=== PATIENT | female | born 1965 | race African-American/Black ===

== ENCOUNTER 2021-08-12 19:05 | Inpatient (IN) ==
[2021-08-12] MEDS ORDERED: ONDANSETRON 4 MG/2 ML VIAL IV PRN (22:21)
[2021-08-12] MEDS ORDERED: GLUCAGON 1 MG VIAL IM PRN ×2 (22:21)
[2021-08-12] MEDS ORDERED: ACETAMINOPHEN 325 MG TABLET PO PRN (22:21)
[2021-08-12] MEDS ORDERED: ZALEPLON 5 MG CAPSULE PO PRN (22:21)
[2021-08-12] MEDS ORDERED: DEXTROSE 50% 25 GM/50 ML VIAL IV PRN ×2 (22:21)
[2021-08-12] MEDS ORDERED: ENOXAPARIN 30 MG/0.3 ML SYRINGE SUBCUT SCH (23:00)
[2021-08-12] MEDS: PROMETHAZINE 25 MG/1 ML VIAL IM PRN (23:06)
[2021-08-13] MEDS: ceFAZolin 1,000 MG VIAL INTRAPERIT SCH (02:29)
[2021-08-13 07:21] LABS: Basophils % 0.2 % (0.0-0.8); Eosinophils # 0.1 10*3/uL (0.0-0.87); Eosinophils % 1.1 % (0.00-10.9); Hematocrit 31.7 VOL% (35.7-47.0); Hemoglobin 10.4 GM/DL (12.0-16.0); Immature Granulocytes % 0.5 %; Immature Granulocytes Absolute 0.06 #; Lymphocytes % 24.8 % (21.3-54.2); Mean Corpuscular HGB Conc 32.8 GM/DL (32-36); Mean Corpuscular Volume 94.3 FL (87-102); Mean Platelet Volume 11.4 FL (9.6-12.0); Monocytes % 7.9 % (1.7-12.7); Neutrophils % 65.5 % (38.7-73.9); Platelet Count 245 T/CUMM (130-400); Red Blood Count 3.36 MC/CUMM (3.8-5.5); Red Cell Distribution Width 13.2 % (9.3-17.3); White Blood Count 12.1 T/CUMM (4-12)
[2021-08-13 07:39] LABS: Alanine Aminotransferase 44 U/L (13-56); Albumin 3.1 G/DL (3.4-5.0); Alkaline Phosphatase 115 U/L (45-117); Aspartate Amino Transferase 50 U/L (0-37); Bilirubin,Total < 0.39 MG/DL (0.20-1.00); Blood Urea Nitrogen 70 MG/DL (7-18); Calcium 8.9 MG/DL (8.5-10.1); Carbon Dioxide 31 MMOL/L (21-32); Estimated Glom Filtration Rate 3 ML/MIN; Glucose 150 MG/DL (74-106); Osmolality,Calculated 296.8 MOS/KG (273-304); Potassium 2.8 MMOL/L (3.5-5.1); Sodium 137 MMOL/L (136-145); Total Protein 7.8 G/DL (6.4-8.2)
[2021-08-13] MEDS ORDERED: POTASSIUM CHLORIDE 20 MEQ TABLET PO ONE (08:00)
[2021-08-13] MEDS: MORPHINE 2 MG/1 ML SYRINGE IV PRN ×2 (09:51→17:29)
[2021-08-13] MEDS: PROMETHAZINE 25 MG/1 ML VIAL IM PRN ×2 (09:52→17:26)
[2021-08-13] MEDS: PANTOPRAZOLE 40 MG TABLET PO SCH (09:53)
[2021-08-13] MEDS: INSULIN REGULAR 100 UNIT/ML SUBCUT SCH ×4 (10:09→21:20)
[2021-08-13] MEDS: GABAPENTIN 300 MG CAPSULE PO SCH ×2 (14:37→21:19)
[2021-08-13] MEDS: INSULIN ASPART PROTAMINE/ASPART 70/30 100 UNIT/ML SUBCUT SCH (17:27)
[2021-08-13] MEDS: MONTELUKAST 10 MG TABLET PO SCH (21:19)
[2021-08-13] MEDS: amLODIPine 10 MG TABLET PO SCH (21:19)
[2021-08-13] MEDS: ROSUVASTATIN 20 MG TABLET PO SCH (21:19)
[2021-08-13] MEDS: ASPIRIN EC 81 MG TABLET PO SCH (21:19)
[2021-08-13] MEDS: PARoxetine 20 MG TABLET PO SCH (21:19)
[2021-08-13] MEDS: FERROUS SULFATE 325 MG TABLET PO SCH (21:19)
[2021-08-13] MEDS: HEPARIN 5,000 UNIT/1 ML VIAL SUBCUT SCH (21:20)
[2021-08-13] MEDS: MENTHOL/ZINC OXIDE OINT 71 GM JAR TOP SCH (21:20)
[2021-08-14] MEDS: ceFAZolin 1,000 MG VIAL INTRAPERIT SCH (01:07)
[2021-08-14 06:07] LABS: Basophils % 0.3 % (0.0-0.8); Eosinophils # 0.2 10*3/uL (0.0-0.87); Eosinophils % 2.2 % (0.00-10.9); Hematocrit 30.7 VOL% (35.7-47.0); Hemoglobin 9.9 GM/DL (12.0-16.0); Immature Granulocytes % 0.5 %; Immature Granulocytes Absolute 0.05 #; Lymphocytes # 2.7 10*3/uL (1.4-4.0); Lymphocytes % 28.4 % (21.3-54.2); Mean Corpuscular HGB Conc 32.2 GM/DL (32-36); Mean Corpuscular Volume 98.4 FL (87-102); Mean Platelet Volume 11.3 FL (9.6-12.0); Monocytes % 9.7 % (1.7-12.7); Neutrophils % 58.9 % (38.7-73.9); Platelet Count 253 T/CUMM (130-400); Red Blood Count 3.12 MC/CUMM (3.8-5.5); Red Cell Distribution Width 13.1 % (9.3-17.3); White Blood Count 9.4 T/CUMM (4-12)
[2021-08-14 06:32] LABS: Osmolality,Calculated 291.1 MOS/KG (273-304)
[2021-08-14] MEDS: HEPARIN 5,000 UNIT/1 ML VIAL SUBCUT SCH ×2 (09:42→20:23)
[2021-08-14] MEDS: FERROUS SULFATE 325 MG TABLET PO SCH ×2 (09:43→20:22)
[2021-08-14] MEDS: GABAPENTIN 300 MG CAPSULE PO SCH ×3 (09:43→20:22)
[2021-08-14] MEDS: PANTOPRAZOLE 40 MG TABLET PO SCH (09:43)
[2021-08-14] MEDS: INSULIN ASPART PROTAMINE/ASPART 70/30 100 UNIT/ML SUBCUT SCH ×2 (09:45→16:57)
[2021-08-14] MEDS: INSULIN REGULAR 100 UNIT/ML SUBCUT SCH ×4 (09:46→20:01)
[2021-08-14] MEDS ORDERED: POTASSIUM CHLORIDE 20 MEQ TABLET PO ONE ×2 (09:51→16:03)
[2021-08-14] MEDS: MORPHINE 2 MG/1 ML SYRINGE IV PRN (15:26)
[2021-08-14] MEDS: MENTHOL/ZINC OXIDE OINT 71 GM JAR TOP SCH (20:21)
[2021-08-14] MEDS: ASPIRIN EC 81 MG TABLET PO SCH (20:21)
[2021-08-14] MEDS: ROSUVASTATIN 20 MG TABLET PO SCH (20:22)
[2021-08-14] MEDS: PARoxetine 20 MG TABLET PO SCH (20:22)
[2021-08-14] MEDS: amLODIPine 10 MG TABLET PO SCH (20:22)
[2021-08-14] MEDS: MONTELUKAST 10 MG TABLET PO SCH (20:22)
[2021-08-15] MEDS: ceFAZolin 1,000 MG VIAL INTRAPERIT SCH (01:29)
[2021-08-15 06:36] LABS: Basophils % 0.4 % (0.0-0.8); Eosinophils # 0.4 10*3/uL (0.0-0.87); Eosinophils % 3.9 % (0.00-10.9); Hematocrit 33.3 VOL% (35.7-47.0); Hemoglobin 10.9 GM/DL (12.0-16.0); Immature Granulocytes % 0.6 %; Immature Granulocytes Absolute 0.06 #; Lymphocytes # 3.3 10*3/uL (1.4-4.0); Lymphocytes % 34.1 % (21.3-54.2); Mean Corpuscular HGB Conc 32.7 GM/DL (32-36); Mean Corpuscular Volume 98.5 FL (87-102); Mean Platelet Volume 11.4 FL (9.6-12.0); Monocytes % 10.9 % (1.7-12.7); Neutrophils % 50.1 % (38.7-73.9); Platelet Count 234 T/CUMM (130-400); Red Blood Count 3.38 MC/CUMM (3.8-5.5); Red Cell Distribution Width 13.2 % (9.3-17.3); White Blood Count 9.8 T/CUMM (4-12)
[2021-08-15 07:19] LABS: Calcium 9.1 MG/DL (8.5-10.1); Osmolality,Calculated 284.2 MOS/KG (273-304)
[2021-08-15] MEDS ORDERED: POTASSIUM CHLORIDE 20 MEQ TABLET PO ONE (07:59)
[2021-08-15] MEDS: GABAPENTIN 300 MG CAPSULE PO SCH ×3 (09:23→20:47)
[2021-08-15] MEDS: PANTOPRAZOLE 40 MG TABLET PO SCH (09:24)
[2021-08-15] MEDS: HEPARIN 5,000 UNIT/1 ML VIAL SUBCUT SCH ×2 (09:24→20:50)
[2021-08-15] MEDS: FERROUS SULFATE 325 MG TABLET PO SCH ×2 (09:24→20:48)
[2021-08-15] MEDS: SEVELAMER CARBONATE 800 MG TABLET PO SCH ×3 (09:25→17:00)
[2021-08-15] MEDS: INSULIN REGULAR 100 UNIT/ML SUBCUT SCH ×4 (09:25→20:51)
[2021-08-15] MEDS: INSULIN ASPART PROTAMINE/ASPART 70/30 100 UNIT/ML SUBCUT SCH ×2 (09:25→17:00)
[2021-08-15] MEDS: PROMETHAZINE 25 MG/1 ML VIAL IM PRN (17:39)
[2021-08-15] MEDS: MONTELUKAST 10 MG TABLET PO SCH (20:47)
[2021-08-15] MEDS: ASPIRIN EC 81 MG TABLET PO SCH (20:47)
[2021-08-15] MEDS: ROSUVASTATIN 20 MG TABLET PO SCH (20:47)
[2021-08-15] MEDS: PARoxetine 20 MG TABLET PO SCH (20:47)
[2021-08-15] MEDS: amLODIPine 5 MG TABLET PO SCH (21:05)
[2021-08-15] MEDS: MENTHOL/ZINC OXIDE OINT 71 GM JAR TOP SCH (21:05)
[2021-08-16] MEDS: ceFAZolin 1,000 MG VIAL INTRAPERIT SCH (01:22)
[2021-08-16 05:34] LABS: Basophils % 0.3 % (0.0-0.8); Eosinophils # 0.3 10*3/uL (0.0-0.87); Eosinophils % 3.1 % (0.00-10.9); Hematocrit 30.6 VOL% (35.7-47.0); Hemoglobin 9.8 GM/DL (12.0-16.0); Immature Granulocytes % 0.6 %; Immature Granulocytes Absolute 0.06 #; Lymphocytes # 2.9 10*3/uL (1.4-4.0); Lymphocytes % 29.2 % (21.3-54.2); Mean Corpuscular Volume 98.1 FL (87-102); Mean Platelet Volume 11.4 FL (9.6-12.0); Monocytes % 10.6 % (1.7-12.7); Neutrophils % 56.2 % (38.7-73.9); Platelet Count 243 T/CUMM (130-400); Red Blood Count 3.12 MC/CUMM (3.8-5.5); Red Cell Distribution Width 13.1 % (9.3-17.3); White Blood Count 9.9 T/CUMM (4-12)
[2021-08-16 05:52] LABS: Calcium 9.2 MG/DL (8.5-10.1); Osmolality,Calculated 284.4 MOS/KG (273-304); Potassium 3.3 MMOL/L (3.5-5.1)
[2021-08-16] MEDS ORDERED: POTASSIUM CHLORIDE 10 MEQ TABLET PO ONE (07:48)
[2021-08-16] MEDS: HEPARIN 5,000 UNIT/1 ML VIAL SUBCUT SCH ×2 (09:49→20:57)
[2021-08-16] MEDS: INSULIN ASPART PROTAMINE/ASPART 70/30 100 UNIT/ML SUBCUT SCH ×2 (09:49→16:48)
[2021-08-16] MEDS: FERROUS SULFATE 325 MG TABLET PO SCH ×2 (09:50→20:56)
[2021-08-16] MEDS: PANTOPRAZOLE 40 MG TABLET PO SCH (09:50)
[2021-08-16] MEDS: GABAPENTIN 300 MG CAPSULE PO SCH ×3 (09:50→20:56)
[2021-08-16] MEDS: SEVELAMER CARBONATE 800 MG TABLET PO SCH ×3 (09:51→16:48)
[2021-08-16] MEDS: GENTAMICIN 0.1% OINT 15 GM TUBE TOP SCH ×4 (09:51→20:57)
[2021-08-16] MEDS: INSULIN REGULAR 100 UNIT/ML SUBCUT SCH ×4 (09:57→23:00)
[2021-08-16] MEDS: ROSUVASTATIN 20 MG TABLET PO SCH (20:56)
[2021-08-16] MEDS: MONTELUKAST 10 MG TABLET PO SCH (20:56)
[2021-08-16] MEDS: PARoxetine 20 MG TABLET PO SCH (20:56)
[2021-08-16] MEDS: amLODIPine 5 MG TABLET PO SCH (20:56)
[2021-08-16] MEDS: ASPIRIN EC 81 MG TABLET PO SCH (20:56)
[2021-08-16] MEDS: MENTHOL/ZINC OXIDE OINT 71 GM JAR TOP SCH (20:56)
[2021-08-17] MEDS: ceFAZolin 1,000 MG VIAL INTRAPERIT SCH (01:23)
[2021-08-17 05:57] LABS: Basophils % 0.4 % (0.0-0.8); Eosinophils # 0.4 10*3/uL (0.0-0.87); Eosinophils % 4.1 % (0.00-10.9); Hematocrit 29.2 VOL% (35.7-47.0); Hemoglobin 9.6 GM/DL (12.0-16.0); Immature Granulocytes % 0.9 %; Immature Granulocytes Absolute 0.08 #; Lymphocytes # 2.6 10*3/uL (1.4-4.0); Lymphocytes % 30.2 % (21.3-54.2); Mean Corpuscular HGB Conc 32.9 GM/DL (32-36); Mean Platelet Volume 11.1 FL (9.6-12.0); Monocytes % 9.4 % (1.7-12.7); Platelet Count 229 T/CUMM (130-400); Red Blood Count 2.95 MC/CUMM (3.8-5.5); White Blood Count 8.5 T/CUMM (4-12)
[2021-08-17 06:10] LABS: Calcium 9.1 MG/DL (8.5-10.1); Osmolality,Calculated 285.5 MOS/KG (273-304); Potassium 3.3 MMOL/L (3.5-5.1)
[2021-08-17] MEDS: INSULIN REGULAR 100 UNIT/ML SUBCUT SCH ×4 (08:42→22:33)
[2021-08-17] MEDS: INSULIN ASPART PROTAMINE/ASPART 70/30 100 UNIT/ML SUBCUT SCH (09:15)
[2021-08-17] MEDS: GENTAMICIN 0.1% OINT 15 GM TUBE TOP SCH ×4 (09:15→22:32)
[2021-08-17] MEDS: SEVELAMER CARBONATE 800 MG TABLET PO SCH ×3 (09:16→16:51)
[2021-08-17] MEDS: HEPARIN 5,000 UNIT/1 ML VIAL SUBCUT SCH ×2 (09:16→22:32)
[2021-08-17] MEDS: GABAPENTIN 300 MG CAPSULE PO SCH ×3 (10:44→22:31)
[2021-08-17] MEDS: SODIUM CHLORIDE 0.9% 1,000 ML IV SCH (11:43)
[2021-08-17] MEDS ORDERED: propofoL 200 MG/20 ML VIAL IV ONE (13:35)
[2021-08-17] MEDS ORDERED: LIDOCAINE 2% 5 ML VIAL ONE (13:35)
[2021-08-17] MEDS ORDERED: ETOMIDATE 20 MG/10 ML VIAL IV ONE (14:03)
[2021-08-17] MEDS: FERROUS SULFATE 325 MG TABLET PO SCH ×2 (14:22→22:31)
[2021-08-17] MEDS: PANTOPRAZOLE 40 MG TABLET PO SCH (14:22)
[2021-08-17] MEDS ORDERED: INSULIN ASPART PROTAMINE/ASPART 70/30 100 UNIT/ML SUBCUT SCH (17:00)
[2021-08-17] MEDS ORDERED: amLODIPine 5 MG TABLET PO SCH (21:00)
[2021-08-17] MEDS: ASPIRIN EC 81 MG TABLET PO SCH (22:30)
[2021-08-17] MEDS: MONTELUKAST 10 MG TABLET PO SCH (22:31)
[2021-08-17] MEDS: ROSUVASTATIN 20 MG TABLET PO SCH (22:31)
[2021-08-17] MEDS: PARoxetine 20 MG TABLET PO SCH (22:31)
[2021-08-17] MEDS: MENTHOL/ZINC OXIDE OINT 71 GM JAR TOP SCH (22:31)
[2021-08-18] MEDS: ceFAZolin 1,000 MG VIAL INTRAPERIT SCH (00:27)
[2021-08-18 05:14] LABS: Basophils % 0.4 % (0.0-0.8); Eosinophils # 0.4 10*3/uL (0.0-0.87); Eosinophils % 3.7 % (0.00-10.9); Hematocrit 29.4 VOL% (35.7-47.0); Hemoglobin 9.4 GM/DL (12.0-16.0); Immature Granulocytes % 1.2 %; Immature Granulocytes Absolute 0.11 #; Lymphocytes # 2.5 10*3/uL (1.4-4.0); Lymphocytes % 26.6 % (21.3-54.2); Mean Corpuscular Volume 98.7 FL (87-102); Mean Platelet Volume 11.1 FL (9.6-12.0); Monocytes % 9.4 % (1.7-12.7); Neutrophils % 58.7 % (38.7-73.9); Platelet Count 218 T/CUMM (130-400); Red Blood Count 2.98 MC/CUMM (3.8-5.5); Red Cell Distribution Width 12.9 % (9.3-17.3); White Blood Count 9.6 T/CUMM (4-12)
[2021-08-18 05:44] LABS: Calcium 9.1 MG/DL (8.5-10.1); Osmolality,Calculated 282.7 MOS/KG (273-304); Potassium 3.2 MMOL/L (3.5-5.1)
[2021-08-18] MEDS ORDERED: INSULIN ASPART PROTAMINE/ASPART 70/30 100 UNIT/ML SUBCUT SCH (08:00)
[2021-08-18] MEDS: INSULIN REGULAR 100 UNIT/ML SUBCUT SCH ×2 (09:23→12:34)
[2021-08-18] MEDS: SEVELAMER CARBONATE 800 MG TABLET PO SCH ×2 (09:24→12:34)
[2021-08-18] MEDS: SODIUM CHLORIDE 0.9% 1,000 ML IV SCH (09:24)
[2021-08-18] MEDS: GABAPENTIN 300 MG CAPSULE PO SCH ×2 (10:22→14:34)
[2021-08-18] MEDS: FERROUS SULFATE 325 MG TABLET PO SCH (10:22)
[2021-08-18] MEDS: PANTOPRAZOLE 40 MG TABLET PO SCH (10:22)
[2021-08-18] MEDS: HEPARIN 5,000 UNIT/1 ML VIAL SUBCUT SCH (10:23)
[2021-08-18] MEDS: GENTAMICIN 0.1% OINT 15 GM TUBE TOP SCH ×2 (10:28→14:34)
[2021-08-18 12:06] VITALS: BP 106/57
[2021-08-18] MEDS ORDERED: POTASSIUM CHLORIDE 10 MEQ TABLET PO ONE (13:10)
== END 2021-08-18 16:29 | DRG 371 ==
LOC: N.TELEN → SUATTDRO 22:21
PROVIDERS: ADMIT Internal Medicine; ATTEND Internal Medicine

== ENCOUNTER 2021-09-17 14:37 | Inpatient (IN) ==
[2021-09-17] MEDS ORDERED: SODIUM CHLORIDE 0.9% 1,000 ML IV STA (18:28)
[2021-09-17] MEDS ORDERED: ONDANSETRON 4 MG/2 ML VIAL IV STA (18:28)
[2021-09-17 18:55] LABS: Basophils % 0.3 % (0.0-0.8); Eosinophils # 0.2 10*3/uL (0.0-0.87); Eosinophils % 1.5 % (0.00-10.9); Hematocrit 26.7 VOL% (35.7-47.0); Hemoglobin 8.6 GM/DL (12.0-16.0); Immature Granulocytes % 0.6 %; Immature Granulocytes Absolute 0.08 #; Lymphocytes # 1.9 10*3/uL (1.4-4.0); Lymphocytes % 14.7 % (21.3-54.2); Mean Corpuscular HGB Conc 32.2 GM/DL (32-36); Mean Corpuscular Volume 96.7 FL (87-102); Mean Platelet Volume 9.8 FL (9.6-12.0); Monocytes % 6.3 % (1.7-12.7); Neutrophils % 76.6 % (38.7-73.9); Platelet Count 503 T/CUMM (130-400); Red Blood Count 2.76 MC/CUMM (3.8-5.5); Red Cell Distribution Width 12.4 % (9.3-17.3); White Blood Count 12.6 T/CUMM (4-12)
[2021-09-17 19:18] LABS: Alanine Aminotransferase 16 U/L (13-56); Albumin 2.8 G/DL (3.4-5.0); Alkaline Phosphatase 113 U/L (45-117); Aspartate Amino Transferase 18 U/L (0-37); Bilirubin,Total < 0.39 MG/DL (0.20-1.00); Blood Urea Nitrogen 34 MG/DL (7-18); Calcium 7.9 MG/DL (8.5-10.1); Carbon Dioxide 33 MMOL/L (21-32); Estimated Glom Filtration Rate 7 ML/MIN; Glucose 250 MG/DL (74-106); Sodium 136 MMOL/L (136-145); Total Protein 9.2 G/DL (6.4-8.2)
[2021-09-17 19:21] LABS: Potassium 2.4 MMOL/L (3.5-5.1)
[2021-09-17] MEDS ORDERED: cefTRIAXone 1,000 MG in SODIUM CHLORIDE 0.9% 100 ML IV STA (19:28)
[2021-09-17] MEDS ORDERED: POTASSIUM CHLORIDE 20 MEQ TABLET PO STA (19:30)
[2021-09-17] MEDS ORDERED: PROMETHAZINE INJ 12.5 MG in SODIUM CHLORIDE 0.9% 50 ML IV STA (19:30)
[2021-09-17] MEDS ORDERED: GLUCAGON 1 MG VIAL IM PRN (20:35)
[2021-09-17] MEDS ORDERED: hydrALAZINE 20 MG/1 ML VIAL IV PRN (20:35)
[2021-09-17] MEDS ORDERED: PROMETHAZINE 25 MG/1 ML VIAL IV PRN (20:35)
[2021-09-17] MEDS ORDERED: ACETAMINOPHEN 325 MG TABLET PO PRN (20:35)
[2021-09-17] MEDS ORDERED: DEXTROSE 50% 25 GM/50 ML SYRINGE IV PRN (20:51)
[2021-09-17] MEDS ORDERED: LACTATED RINGERS 1,000 ML IV SCH (21:00)
[2021-09-17] MEDS: HEPARIN 5,000 UNIT/1 ML VIAL SUBCUT SCH (23:07)
[2021-09-17] MEDS: metroNIDAZOLE INJ 500 MG/100 ML PREMIX IV SCH (23:07)
[2021-09-18] MEDS: INSULIN LISPRO 100 UNIT/ML SUBCUT SCH ×4 (01:04→17:04)
[2021-09-18] MEDS ORDERED: MAGNESIUM SULF RIDER 2 GM/50 ML PREMIX IV ONE (02:27)
[2021-09-18 06:36] LABS: Albumin 2.1 G/DL (3.4-5.0); Bilirubin,Total 0.6 MG/DL (0.20-1.00); Calcium 7.3 MG/DL (8.5-10.1); Osmolality,Calculated 290.4 MOS/KG (273-304); Potassium 2.6 MMOL/L (3.5-5.1); Total Protein 6.8 G/DL (6.4-8.2)
[2021-09-18 07:24] LABS: Basophils % 0.2 % (0.0-0.8); Eosinophils # 0.2 10*3/uL (0.0-0.87); Eosinophils % 1.8 % (0.00-10.9); Hematocrit 20.1 VOL% (35.7-47.0); Immature Granulocytes % 0.8 %; Immature Granulocytes Absolute 0.09 #; Lymphocytes # 1.5 10*3/uL (1.4-4.0); Lymphocytes % 14.4 % (21.3-54.2); Mean Corpuscular HGB Conc 32.8 GM/DL (32-36); Mean Corpuscular Volume 96.6 FL (87-102); Mean Platelet Volume 9.5 FL (9.6-12.0); Monocytes % 8.7 % (1.7-12.7); Neutrophils % 74.1 % (38.7-73.9); Red Cell Distribution Width 12.5 % (9.3-17.3); White Blood Count 10.7 T/CUMM (4-12)
[2021-09-18 07:26] LABS: Hemoglobin 6.6 GM/DL (12.0-16.0); Platelet Count 354 T/CUMM (130-400); Red Blood Count 2.08 MC/CUMM (3.8-5.5)
[2021-09-18] MEDS ORDERED: POTASSIUM CHLORIDE 20 MEQ TABLET PO ONE (07:27)
[2021-09-18] MEDS ORDERED: SODIUM CHLORIDE 0.9% 1,000 ML IV PRN (08:25)
[2021-09-18] MEDS: HEPARIN 5,000 UNIT/1 ML VIAL SUBCUT SCH ×2 (08:35→21:19)
[2021-09-18] MEDS: metroNIDAZOLE INJ 500 MG/100 ML PREMIX IV SCH ×2 (08:35→17:03)
[2021-09-18 15:28] LABS: Hematocrit 26.2 VOL% (35.7-47.0)
[2021-09-18 15:30] LABS: Hemoglobin 8.8 GM/DL (12.0-16.0)
[2021-09-18 15:43] LABS: Neutrophils,Peritoneal Fluid 20 %; RBC,Peritoneal Fluid < 1 T/CUMM
[2021-09-18] MEDS: ONDANSETRON 4 MG/2 ML VIAL IV PRN (17:52)
[2021-09-18] MEDS ORDERED: cefTRIAXone 1,000 MG in SODIUM CHLORIDE 0.9% 100 ML IV SCH (20:00)
[2021-09-19] MEDS ORDERED: VANCOMYCIN 1,000 MG VIAL INTRAPERIT ONE
[2021-09-19] MEDS: INSULIN LISPRO 100 UNIT/ML SUBCUT SCH ×5 (00:39→22:34)
[2021-09-19 07:41] LABS: Basophils % 0.3 % (0.0-0.8); Eosinophils # 0.3 10*3/uL (0.0-0.87); Eosinophils % 3.3 % (0.00-10.9); Hematocrit 29.4 VOL% (35.7-47.0); Hemoglobin 9.7 GM/DL (12.0-16.0); Immature Granulocytes % 1.5 %; Immature Granulocytes Absolute 0.13 #; Lymphocytes % 22.7 % (21.3-54.2); Mean Corpuscular Volume 96.4 FL (87-102); Mean Platelet Volume 9.9 FL (9.6-12.0); Monocytes % 6.7 % (1.7-12.7); Neutrophils % 65.5 % (38.7-73.9); Platelet Count 320 T/CUMM (130-400); Red Blood Count 3.05 MC/CUMM (3.8-5.5); Red Cell Distribution Width 13.6 % (9.3-17.3); White Blood Count 8.7 T/CUMM (4-12)
[2021-09-19 07:56] LABS: Calcium 7.5 MG/DL (8.5-10.1); Osmolality,Calculated 289.4 MOS/KG (273-304); Potassium 2.6 MMOL/L (3.5-5.1)
[2021-09-19] MEDS: HEPARIN 5,000 UNIT/1 ML VIAL SUBCUT SCH ×2 (08:14→22:34)
[2021-09-19] MEDS ORDERED: POTASSIUM CHLORIDE 20 MEQ TABLET PO ONE (08:17)
[2021-09-19] MEDS: VANCOMYCIN 50 MG/ML 60 ML/BOTTLE PO SCH ×2 (17:20→23:11)
[2021-09-19] MEDS: ONDANSETRON 4 MG/2 ML VIAL IV PRN (17:20)
[2021-09-20] MEDS ORDERED: GENTAMICIN 80 MG/2 ML VIAL INTRAPERIT SCH
[2021-09-20] MEDS: VANCOMYCIN 50 MG/ML 60 ML/BOTTLE PO SCH ×2 (06:28→11:57)
[2021-09-20 07:09] LABS: Basophils % 0.3 % (0.0-0.8); Eosinophils # 0.3 10*3/uL (0.0-0.87); Eosinophils % 4.1 % (0.00-10.9); Hematocrit 25.7 VOL% (35.7-47.0); Hemoglobin 8.4 GM/DL (12.0-16.0); Immature Granulocytes % 0.9 %; Immature Granulocytes Absolute 0.06 #; Lymphocytes # 1.8 10*3/uL (1.4-4.0); Lymphocytes % 26.2 % (21.3-54.2); Mean Corpuscular HGB Conc 32.7 GM/DL (32-36); Mean Corpuscular Volume 97.3 FL (87-102); Mean Platelet Volume 9.5 FL (9.6-12.0); Monocytes % 9.6 % (1.7-12.7); Neutrophils % 58.9 % (38.7-73.9); Platelet Count 305 T/CUMM (130-400); Red Blood Count 2.64 MC/CUMM (3.8-5.5); Red Cell Distribution Width 13.6 % (9.3-17.3); White Blood Count 6.9 T/CUMM (4-12)
[2021-09-20 07:22] LABS: Calcium 7.7 MG/DL (8.5-10.1); Potassium 2.6 MMOL/L (3.5-5.1)
[2021-09-20] MEDS ORDERED: POTASSIUM CHLORIDE 20 MEQ TABLET PO ONE ×2 (09:30→13:00)
[2021-09-20] MEDS ORDERED: POTASSIUM CHLORIDE 20 MEQ TABLET PO SCH (09:30)
[2021-09-20] MEDS: HEPARIN 5,000 UNIT/1 ML VIAL SUBCUT SCH (09:43)
[2021-09-20] MEDS: INSULIN LISPRO 100 UNIT/ML SUBCUT SCH ×2 (09:43→11:56)
[2021-09-20 12:25] VITALS: BP 150/64
== END 2021-09-20 16:15 | disposition home health service (06) | DRG 371 ==
LOC: N.ED 14:37 → N.3E 20:35 → SUATTDRO 20:35 → N.3E 22:50
PROVIDERS: ADMIT Internal Medicine; ATTEND Internal Medicine

== ENCOUNTER 2021-09-22 15:30 | Observation (INO) ==
[2021-09-22] MEDS ORDERED: SODIUM CHLORIDE 0.9% 1,000 ML IV STA (16:51)
[2021-09-22] MEDS ORDERED: ONDANSETRON 4 MG/2 ML VIAL IV STA (16:52)
[2021-09-22 17:12] LABS: Basophils % 0.2 % (0.0-0.8); Eosinophils # 0.3 10*3/uL (0.0-0.87); Eosinophils % 2.1 % (0.00-10.9); Hematocrit 30.9 VOL% (35.7-47.0); Hemoglobin 10.2 GM/DL (12.0-16.0); Immature Granulocytes % 0.8 %; Immature Granulocytes Absolute 0.11 #; Lymphocytes # 1.9 10*3/uL (1.4-4.0); Lymphocytes % 14.5 % (21.3-54.2); Mean Corpuscular Volume 95.4 FL (87-102); Mean Platelet Volume 9.7 FL (9.6-12.0); Monocytes % 6.8 % (1.7-12.7); Neutrophils % 75.6 % (38.7-73.9); Platelet Count 366 T/CUMM (130-400); Red Blood Count 3.24 MC/CUMM (3.8-5.5); Red Cell Distribution Width 13.8 % (9.3-17.3); White Blood Count 13.1 T/CUMM (4-12)
[2021-09-22 17:37] LABS: Albumin 2.6 G/DL (3.4-5.0); Bilirubin,Total 0.4 MG/DL (0.20-1.00); Calcium 8.1 MG/DL (8.5-10.1); Osmolality,Calculated 287.8 MOS/KG (273-304); Potassium 2.8 MMOL/L (3.5-5.1)
[2021-09-22 18:27] LABS: Bilirubin,Urine Negative (Negative); Blood, Urine Small mg/dL (Negative); Glucose,Urine (UA) >=500 mg/dL (Negative); Ketones,Urine Negative (Negative); Mucus,Urine Occasional /LPF (Occasional); Nitrite,Urine Negative (Negative); Protein,Urine 100 MG/DL; RBC,Urine 2 /HPF (0-4); Squamous Epithelial Cell,Urine Occasional /HPF (0-10); Urine Appearance CLEAR (Clear); Urine Color Yellow (Yellow); Urine Specific Gravity 1.014 (1.001-1.035); Urine Urobilinogen < 2.0 EU/DL (<2.0)
[2021-09-22] MEDS ORDERED: POTASSIUM CHLORIDE 20 MEQ TABLET PO STA (21:14)
[2021-09-22] MEDS ORDERED: MAGNESIUM SULF RIDER 4 GM/100 ML PREMIX IV STA (21:25)
[2021-09-22] MEDS ORDERED: PANTOPRAZOLE 40 MG VIAL IV SCH (21:56)
[2021-09-22] MEDS ORDERED: GLUCAGON 1 MG VIAL IM PRN (21:56)
[2021-09-22] MEDS ORDERED: DEXTROSE 50% 25 GM/50 ML SYRINGE IV PRN (21:56)
[2021-09-22] MEDS ORDERED: ONDANSETRON 4 MG/2 ML VIAL IV PRN (21:56)
[2021-09-22] MEDS ORDERED: hydrALAZINE 20 MG/1 ML VIAL IV PRN (21:56)
[2021-09-22] MEDS ORDERED: PROMETHAZINE 25 MG/1 ML VIAL IM PRN (21:56)
[2021-09-22] MEDS ORDERED: SODIUM CHLORIDE 0.9% 1,000 ML IV SCH (22:00)
[2021-09-22] MEDS ORDERED: MORPHINE 2 MG/1 ML SYRINGE IV PRN (22:10)
[2021-09-22] MEDS ORDERED: ALUMINUM/MAGNES/SIMETH MAX STR 30 ML UDCUP PO PRN (22:15)
[2021-09-22] MEDS: PANTOPRAZOLE 40 MG VIAL IV SCH (22:19)
[2021-09-23] MEDS ORDERED: PIPERACILLIN/TAZOBACTAM 3,375 MG in SODIUM CHLORIDE 0.9% 100 ML IV SCH
[2021-09-23] MEDS: INSULIN REGULAR 100 UNIT/ML SUBCUT SCH ×5 (00:14→23:35)
[2021-09-23] MEDS: VANCOMYCIN 50 MG/ML 60 ML/BOTTLE PO SCH ×5 (00:51→23:40)
[2021-09-23 06:13] LABS: Basophils % 0.3 % (0.0-0.8); Eosinophils # 0.3 10*3/uL (0.0-0.87); Eosinophils % 2.4 % (0.00-10.9); Hematocrit 24.3 VOL% (35.7-47.0); Immature Granulocytes % 0.6 %; Immature Granulocytes Absolute 0.07 #; Lymphocytes # 1.9 10*3/uL (1.4-4.0); Lymphocytes % 16.3 % (21.3-54.2); Mean Corpuscular HGB Conc 33.3 GM/DL (32-36); Mean Corpuscular Volume 97.2 FL (87-102); Mean Platelet Volume 9.9 FL (9.6-12.0); Monocytes % 8.4 % (1.7-12.7); Red Cell Distribution Width 13.9 % (9.3-17.3); White Blood Count 11.5 T/CUMM (4-12)
[2021-09-23 06:15] LABS: Hemoglobin 8.1 GM/DL (12.0-16.0); Platelet Count 270 T/CUMM (130-400)
[2021-09-23 06:41] LABS: Bilirubin,Total 0.9 MG/DL (0.20-1.00); Potassium 2.7 MMOL/L (3.5-5.1); Thyroid Stimulating Hormone 0.89 uIU/ml (0.358-3.74); Total Protein 6.2 G/DL (6.4-8.2)
[2021-09-23] MEDS: SEVELAMER CARBONATE 800 MG TABLET PO SCH ×3 (08:47→17:02)
[2021-09-23] MEDS: POTASSIUM CHLORIDE 20 MEQ TABLET PO SCH ×2 (08:48→23:02)
[2021-09-23] MEDS: INSULIN ASPART PROTAMINE/ASPART 70/30 100 UNIT/ML SUBCUT SCH (08:48)
[2021-09-23] MEDS: GABAPENTIN 300 MG CAPSULE PO SCH ×3 (08:48→23:02)
[2021-09-23] MEDS: FERROUS SULFATE 325 MG TABLET PO SCH ×2 (08:48→17:00)
[2021-09-23] MEDS: PANTOPRAZOLE 40 MG VIAL IV SCH ×2 (08:49→23:03)
[2021-09-23] MEDS ORDERED: POTASSIUM CHLORIDE 20 MEQ TABLET PO ONE (11:30)
[2021-09-23] MEDS ORDERED: MAGNESIUM SULF RIDER 2 GM/50 ML PREMIX IV ONE (11:30)
[2021-09-23] MEDS ORDERED: MAGNESIUM SULF RIDER 2 GM/50 ML PREMIX IV PRN (12:06)
[2021-09-23] MEDS ORDERED: MAGNESIUM SULF RIDER 4 GM/100 ML PREMIX IV PRN (12:06)
[2021-09-23] MEDS: GENTAMICIN 0.1% OINT 15 GM TUBE TOP SCH ×3 (12:22→23:07)
[2021-09-23] MEDS ORDERED: INSULIN ASPART PROTAMINE/ASPART 70/30 100 UNIT/ML SUBCUT SCH (17:00)
[2021-09-23 17:27] LABS: Hematocrit 26.2 VOL% (35.7-47.0); Hemoglobin 8.7 GM/DL (12.0-16.0)
[2021-09-23] MEDS ORDERED: MONTELUKAST 10 MG TABLET PO SCH (21:00)
[2021-09-23] MEDS ORDERED: amLODIPine 10 MG TABLET PO SCH (21:00)
[2021-09-23] MEDS ORDERED: ROSUVASTATIN 20 MG TABLET PO SCH (21:00)
[2021-09-23] MEDS ORDERED: MENTHOL/ZINC OXIDE OINT 71 GM JAR TOP SCH (21:00)
[2021-09-23] MEDS ORDERED: PARoxetine 20 MG TABLET PO SCH (21:00)
[2021-09-23 22:38] LABS: Hematocrit 23.2 VOL% (35.7-47.0); Hemoglobin 7.7 GM/DL (12.0-16.0)
[2021-09-24 05:42] LABS: Basophils % 0.2 % (0.0-0.8); Eosinophils # 0.3 10*3/uL (0.0-0.87); Eosinophils % 3.1 % (0.00-10.9); Hematocrit 23.4 VOL% (35.7-47.0); Hemoglobin 7.8 GM/DL (12.0-16.0); Immature Granulocytes % 0.6 %; Immature Granulocytes Absolute 0.06 #; Lymphocytes # 2.3 10*3/uL (1.4-4.0); Lymphocytes % 21.1 % (21.3-54.2); Mean Corpuscular HGB Conc 33.3 GM/DL (32-36); Mean Corpuscular Volume 98.3 FL (87-102); Mean Platelet Volume 9.9 FL (9.6-12.0); Monocytes % 8.7 % (1.7-12.7); Neutrophils % 66.3 % (38.7-73.9); Platelet Count 267 T/CUMM (130-400); Red Blood Count 2.38 MC/CUMM (3.8-5.5); Red Cell Distribution Width 14.1 % (9.3-17.3); White Blood Count 10.8 T/CUMM (4-12)
[2021-09-24 06:15] LABS: Hypochromasia 2+; Platelet Estimate Normal
[2021-09-24 06:26] LABS: Calcium 7.7 MG/DL (8.5-10.1); Osmolality,Calculated 285.1 MOS/KG (273-304); Potassium 3.3 MMOL/L (3.5-5.1)
[2021-09-24] MEDS: VANCOMYCIN 50 MG/ML 60 ML/BOTTLE PO SCH ×2 (06:34→12:02)
[2021-09-24] MEDS: INSULIN REGULAR 100 UNIT/ML SUBCUT SCH ×2 (06:34→12:03)
[2021-09-24] MEDS: INSULIN ASPART PROTAMINE/ASPART 70/30 100 UNIT/ML SUBCUT SCH (08:58)
[2021-09-24] MEDS: PANTOPRAZOLE 40 MG VIAL IV SCH (08:59)
[2021-09-24] MEDS: POTASSIUM CHLORIDE 20 MEQ TABLET PO SCH (08:59)
[2021-09-24] MEDS: SEVELAMER CARBONATE 800 MG TABLET PO SCH ×2 (08:59→12:01)
[2021-09-24] MEDS: FERROUS SULFATE 325 MG TABLET PO SCH (08:59)
[2021-09-24] MEDS: GENTAMICIN 0.1% OINT 15 GM TUBE TOP SCH (08:59)
[2021-09-24] MEDS: GABAPENTIN 300 MG CAPSULE PO SCH (08:59)
[2021-09-24] MEDS ORDERED: POTASSIUM CHLORIDE 20 MEQ TABLET PO ONE (10:33)
[2021-09-24 11:24] LABS: Hematocrit 26.6 VOL% (35.7-47.0); Hemoglobin 8.7 GM/DL (12.0-16.0)
[2021-09-24 11:38] VITALS: BP 125/77
== END 2021-09-24 12:40 | disposition home health service (06) ==
LOC: EDUNIT# → EDBD → N.ED 15:30 → N.EDINP 15:30 → N.3E 09-23 02:00
PROVIDERS: ADMIT Internal Medicine; ATTEND Internal Medicine

== ENCOUNTER 2021-10-04 12:49 | Observation (INO) ==
[2021-10-04 14:37] LABS: Basophils % 0.2 % (0.0-0.8); Eosinophils # 0.2 10*3/uL (0.0-0.87); Eosinophils % 1.6 % (0.00-10.9); Hematocrit 22.3 VOL% (35.7-47.0); Hemoglobin 7.7 GM/DL (12.0-16.0); Immature Granulocytes % 0.5 %; Immature Granulocytes Absolute 0.05 #; Lymphocytes # 1.7 10*3/uL (1.4-4.0); Lymphocytes % 17.2 % (21.3-54.2); Mean Corpuscular HGB Conc 34.5 GM/DL (32-36); Mean Corpuscular Volume 94.5 FL (87-102); Mean Platelet Volume 10.7 FL (9.6-12.0); Monocytes % 6.6 % (1.7-12.7); Neutrophils % 73.9 % (38.7-73.9); Platelet Count 239 T/CUMM (130-400); Red Blood Count 2.36 MC/CUMM (3.8-5.5); Red Cell Distribution Width 13.3 % (9.3-17.3); White Blood Count 9.6 T/CUMM (4-12)
[2021-10-04 14:53] LABS: Alanine Aminotransferase 17 U/L (13-56); Albumin 2.3 G/DL (3.4-5.0); Alkaline Phosphatase 105 U/L (45-117); Aspartate Amino Transferase 16 U/L (0-37); Bilirubin,Total < 0.39 MG/DL (0.20-1.00); Blood Urea Nitrogen 17 MG/DL (7-18); Calcium 7.2 MG/DL (8.5-10.1); Carbon Dioxide 34 MMOL/L (21-32); Estimated Glom Filtration Rate 8 ML/MIN; Glucose 272 MG/DL (74-106); Sodium 136 MMOL/L (136-145); Total Protein 7.5 G/DL (6.4-8.2)
[2021-10-04 14:57] LABS: Potassium 2.5 MMOL/L (3.5-5.1)
[2021-10-04] MEDS ORDERED: GLUCAGON 1 MG VIAL IM PRN (17:03)
[2021-10-04] MEDS ORDERED: ACETAMINOPHEN 325 MG TABLET PO PRN (17:03)
[2021-10-04] MEDS ORDERED: ALBUTEROL 2.5 MG/3 ML NEB RESP TX PRN (17:03)
[2021-10-04] MEDS ORDERED: DEXTROSE 50% 25 GM/50 ML SYRINGE IV PRN (17:03)
[2021-10-04] MEDS ORDERED: SODIUM CHLORIDE 0.9% 1,000 ML IV SCH (17:30)
[2021-10-04] MEDS ORDERED: POTASSIUM CHLORIDE 20 MEQ TABLET PO SCH (17:30)
[2021-10-04 17:39] LABS: % Iron Saturation 28.3 % (18-50)
[2021-10-04 18:01] LABS: Folate 5.82 NG/ML (5.38-24.0)
[2021-10-04] MEDS ORDERED: MAGNESIUM SULF RIDER 2 GM/50 ML PREMIX IV STA (18:48)
[2021-10-04] MEDS: INSULIN LISPRO 100 UNIT/ML SUBCUT SCH (21:28)
[2021-10-04] MEDS: ROSUVASTATIN 20 MG TABLET PO SCH (21:30)
[2021-10-04] MEDS: FERROUS SULFATE 325 MG TABLET PO SCH (21:30)
[2021-10-04] MEDS: PARoxetine 20 MG TABLET PO SCH (21:31)
[2021-10-04] MEDS: MONTELUKAST 10 MG TABLET PO SCH (21:36)
[2021-10-04] MEDS ORDERED: CHOLESTYRAMINE 4 GM PACK PO SCH (22:00)
[2021-10-04] MEDS: ONDANSETRON 4 MG/2 ML VIAL IV PRN (23:56)
[2021-10-05 05:59] LABS: Basophils % 0.3 % (0.0-0.8); Eosinophils # 0.2 10*3/uL (0.0-0.87); Hematocrit 21.8 VOL% (35.7-47.0); Hemoglobin 7.3 GM/DL (12.0-16.0); Immature Granulocytes % 0.3 %; Immature Granulocytes Absolute 0.02 #; Lymphocytes # 1.8 10*3/uL (1.4-4.0); Lymphocytes % 22.2 % (21.3-54.2); Mean Corpuscular HGB Conc 33.5 GM/DL (32-36); Mean Corpuscular Volume 95.6 FL (87-102); Mean Platelet Volume 11.4 FL (9.6-12.0); Monocytes % 7.5 % (1.7-12.7); Neutrophils % 67.7 % (38.7-73.9); Red Blood Count 2.28 MC/CUMM (3.8-5.5); Red Cell Distribution Width 13.4 % (9.3-17.3)
[2021-10-05 06:03] LABS: Platelet Count 156 T/CUMM (130-400)
[2021-10-05 06:10] LABS: Calcium 6.9 MG/DL (8.5-10.1); Osmolality,Calculated 280.7 MOS/KG (273-304); Potassium 3.2 MMOL/L (3.5-5.1)
[2021-10-05] MEDS ORDERED: SODIUM CHLORIDE 0.9% 1,000 ML IV PRN (08:14)
[2021-10-05] MEDS: FERROUS SULFATE 325 MG TABLET PO SCH ×3 (08:18→21:14)
[2021-10-05] MEDS: PANTOPRAZOLE 40 MG VIAL IV SCH (08:18)
[2021-10-05] MEDS: ASPIRIN EC 81 MG TABLET PO SCH (08:18)
[2021-10-05] MEDS: INSULIN LISPRO 100 UNIT/ML SUBCUT SCH ×4 (08:18→20:56)
[2021-10-05] MEDS: ONDANSETRON 4 MG/2 ML VIAL IV PRN (09:05)
[2021-10-05] MEDS ORDERED: POTASSIUM CHLORIDE 20 MEQ TABLET PO ONE (09:55)
[2021-10-05] MEDS: POLYETHYLENE GLYCOL POWDER 17 GM PACK PO SCH (11:03)
[2021-10-05] MEDS: MONTELUKAST 10 MG TABLET PO SCH (20:55)
[2021-10-05] MEDS: ROSUVASTATIN 20 MG TABLET PO SCH (20:55)
[2021-10-05] MEDS: PARoxetine 20 MG TABLET PO SCH (20:56)
[2021-10-06 05:59] LABS: Basophils % 0.3 % (0.0-0.8); Eosinophils # 0.2 10*3/uL (0.0-0.87); Eosinophils % 2.5 % (0.00-10.9); Hematocrit 26.2 VOL% (35.7-47.0); Hemoglobin 8.8 GM/DL (12.0-16.0); Immature Granulocytes % 0.4 %; Immature Granulocytes Absolute 0.03 #; Lymphocytes # 1.5 10*3/uL (1.4-4.0); Lymphocytes % 21.4 % (21.3-54.2); Mean Corpuscular HGB Conc 33.6 GM/DL (32-36); Mean Corpuscular Volume 92.6 FL (87-102); Monocytes % 7.2 % (1.7-12.7); Neutrophils % 68.2 % (38.7-73.9); Platelet Count 186 T/CUMM (130-400); Red Blood Count 2.83 MC/CUMM (3.8-5.5); Red Cell Distribution Width 13.8 % (9.3-17.3); White Blood Count 7.2 T/CUMM (4-12)
[2021-10-06 06:23] LABS: Calcium 7.3 MG/DL (8.5-10.1); Osmolality,Calculated 283.3 MOS/KG (273-304); Potassium 2.8 MMOL/L (3.5-5.1)
[2021-10-06 08:30] VITALS: BP 157/73
[2021-10-06] MEDS ORDERED: POTASSIUM CHLORIDE 20 MEQ TABLET PO ONE (08:30)
[2021-10-06] MEDS: INSULIN LISPRO 100 UNIT/ML SUBCUT SCH (08:35)
[2021-10-06] MEDS: ASPIRIN EC 81 MG TABLET PO SCH (08:36)
[2021-10-06] MEDS: POLYETHYLENE GLYCOL POWDER 17 GM PACK PO SCH (08:36)
[2021-10-06] MEDS: PANTOPRAZOLE 40 MG VIAL IV SCH (08:36)
[2021-10-06] MEDS: ONDANSETRON 4 MG/2 ML VIAL IV PRN (08:41)
[2021-10-06] MEDS: FERROUS SULFATE 325 MG TABLET PO SCH (10:46)
== END 2021-10-06 12:19 | disposition home or self-care (01) ==
LOC: EDBD → EDUNIT# → N.EDINP 12:49 → N.ED 12:49 → SUATTDRO 16:48 → N.3E 10-05 00:30
PROVIDERS: ADMIT Internal Medicine; ATTEND Internal Medicine

== ENCOUNTER 2021-10-17 16:27 | Inpatient (IN) ==
[2021-10-17] MEDS ORDERED: ONDANSETRON 4 MG/2 ML VIAL IV STA (17:47)
[2021-10-17] MEDS ORDERED: SODIUM CHLORIDE 0.9% 1,000 ML IV STA ×2 (17:47→19:47)
[2021-10-17 19:05] LABS: Basophils % 0.1 % (0.0-0.8); Eosinophils % 0.1 % (0.00-10.9); Hematocrit 35.3 VOL% (35.7-47.0); Hemoglobin 11.9 GM/DL (12.0-16.0); Immature Granulocytes % 0.6 %; Immature Granulocytes Absolute 0.08 #; Lymphocytes # 1.7 10*3/uL (1.4-4.0); Lymphocytes % 12.2 % (21.3-54.2); Mean Corpuscular HGB Conc 33.7 GM/DL (32-36); Mean Corpuscular Volume 90.5 FL (87-102); Mean Platelet Volume 11.2 FL (9.6-12.0); Monocytes % 5.8 % (1.7-12.7); Neutrophils % 81.2 % (38.7-73.9); Platelet Count 352 T/CUMM (130-400); Red Cell Distribution Width 13.6 % (9.3-17.3); White Blood Count 13.5 T/CUMM (4-12)
[2021-10-17 19:23] LABS: Alanine Aminotransferase 27 U/L (13-56); Albumin 2.7 G/DL (3.4-5.0); Alkaline Phosphatase 154 U/L (45-117); Aspartate Amino Transferase 18 U/L (0-37); Blood Urea Nitrogen 23 MG/DL (7-18); Calcium 7.8 MG/DL (8.5-10.1); Carbon Dioxide 34 MMOL/L (21-32); Estimated Glom Filtration Rate 6 ML/MIN; Glucose 365 MG/DL (74-106); Sodium 136 MMOL/L (136-145); Total Protein 8.8 G/DL (6.4-8.2)
[2021-10-17 19:26] LABS: Potassium 2.5 MMOL/L (3.5-5.1)
[2021-10-17] MEDS ORDERED: INSULIN REGULAR 100 UNIT/ML SUBCUT STA (19:49)
[2021-10-17] MEDS: POTASSIUM CHLORIDE RIDER 10 MEQ/100 ML PREMIX IV SCH ×3 (20:00→23:09)
[2021-10-17] MEDS ORDERED: PROMETHAZINE 25 MG/1 ML VIAL IM STA (20:45)
[2021-10-17] MEDS ORDERED: PROMETHAZINE 25 MG/1 ML VIAL ONE (20:46)
[2021-10-17] MEDS ORDERED: GLUCAGON 1 MG VIAL IM PRN (21:44)
[2021-10-17] MEDS ORDERED: hydrALAZINE 20 MG/1 ML VIAL IV PRN (21:44)
[2021-10-17] MEDS ORDERED: PROMETHAZINE 25 MG/1 ML VIAL IV PRN (21:44)
[2021-10-17] MEDS ORDERED: DEXTROSE 50% 25 GM/50 ML SYRINGE IV PRN (21:44)
[2021-10-17] MEDS ORDERED: PROMETHAZINE INJ 25 MG in SODIUM CHLORIDE 0.9% 50 ML IV PRN (21:55)
[2021-10-17] MEDS: ONDANSETRON 4 MG/2 ML VIAL IV PRN (22:03)
[2021-10-17] MEDS ORDERED: PROCHLORPERAZINE 10 MG/2 ML VIAL ONE (22:24)
[2021-10-17] MEDS ORDERED: PROCHLORPERAZINE 10 MG/2 ML VIAL IV PRN (22:25)
[2021-10-17] MEDS: PANTOPRAZOLE 40 MG VIAL IV SCH (22:32)
[2021-10-17] MEDS: SODIUM CHLORIDE 0.9% 1,000 ML IV SCH (22:58)
[2021-10-18] MEDS: POTASSIUM CHLORIDE RIDER 10 MEQ/100 ML PREMIX IV SCH ×5 (00:12→09:48)
[2021-10-18] MEDS ORDERED: MAGNESIUM SULF RIDER 1 GM/100 ML PREMIX IV ONE (01:00)
[2021-10-18] MEDS: ONDANSETRON 4 MG/2 ML VIAL IV PRN (02:07)
[2021-10-18 04:06] LABS: Basophils % 0.2 % (0.0-0.8); Eosinophils % 0.1 % (0.00-10.9); Hematocrit 24.4 VOL% (35.7-47.0); Immature Granulocytes % 0.6 %; Immature Granulocytes Absolute 0.06 #; Lymphocytes # 1.5 10*3/uL (1.4-4.0); Lymphocytes % 14.4 % (21.3-54.2); Mean Corpuscular HGB Conc 33.6 GM/DL (32-36); Mean Corpuscular Volume 93.1 FL (87-102); Mean Platelet Volume 10.7 FL (9.6-12.0); Monocytes % 8.6 % (1.7-12.7); Neutrophils % 76.1 % (38.7-73.9); Red Cell Distribution Width 13.8 % (9.3-17.3); White Blood Count 10.6 T/CUMM (4-12)
[2021-10-18 04:12] LABS: Red Blood Count 2.62 MC/CUMM (3.8-5.5)
[2021-10-18 04:13] LABS: Hemoglobin 8.2 GM/DL (12.0-16.0); Platelet Count 262 T/CUMM (130-400)
[2021-10-18 04:20] LABS: Albumin 1.6 G/DL (3.4-5.0); Bilirubin,Total 0.8 MG/DL (0.20-1.00); Calcium 6.1 MG/DL (8.5-10.1); Osmolality,Calculated 289.1 MOS/KG (273-304); Total Protein 5.9 G/DL (6.4-8.2)
[2021-10-18 04:28] LABS: Potassium 2.3 MMOL/L (3.5-5.1)
[2021-10-18] MEDS ORDERED: POTASSIUM CHLORIDE RIDER 10 MEQ/100 ML PREMIX IV SCH (05:00)
[2021-10-18] MEDS: INSULIN LISPRO 100 UNIT/ML SUBCUT SCH ×4 (09:33→23:12)
[2021-10-18] MEDS: PANTOPRAZOLE 40 MG VIAL IV SCH ×2 (09:47→22:02)
[2021-10-18] MEDS: ceFAZolin 1,000 MG VIAL INTRAPERIT SCH (09:49)
[2021-10-18] MEDS: POTASSIUM CHLORIDE 20 MEQ TABLET PO SCH ×3 (12:00→21:59)
[2021-10-18] MEDS ORDERED: MAGNESIUM SULF INJ 3 GM in SODIUM CHLORIDE 0.9% 100 ML IV ONE (13:53)
[2021-10-18] MEDS: SODIUM CHLORIDE 0.9% 1,000 ML IV SCH (14:16)
[2021-10-18] MEDS: GENTAMICIN 0.1% OINT 15 GM TUBE TOP SCH ×3 (14:20→23:12)
[2021-10-18] MEDS: carvediloL 6.25 MG TABLET PO SCH (17:20)
[2021-10-18] MEDS: metroNIDAZOLE INJ 500 MG/100 ML PREMIX IV SCH (17:40)
[2021-10-18] MEDS: GABAPENTIN 400 MG CAPSULE PO SCH (21:59)
[2021-10-18] MEDS: ROSUVASTATIN 20 MG TABLET PO SCH (21:59)
[2021-10-18] MEDS: MONTELUKAST 10 MG TABLET PO SCH (21:59)
[2021-10-18] MEDS: ASPIRIN EC 81 MG TABLET PO SCH (21:59)
[2021-10-18] MEDS: PARoxetine 20 MG TABLET PO SCH (22:00)
[2021-10-19] MEDS: metroNIDAZOLE INJ 500 MG/100 ML PREMIX IV SCH ×3 (02:18→16:39)
[2021-10-19 05:31] LABS: Basophils % 0.3 % (0.0-0.8); Eosinophils # 0.2 10*3/uL (0.0-0.87); Eosinophils % 2.3 % (0.00-10.9); Hematocrit 23.6 VOL% (35.7-47.0); Hemoglobin 7.9 GM/DL (12.0-16.0); Immature Granulocytes % 0.9 %; Immature Granulocytes Absolute 0.06 #; Lymphocytes # 1.6 10*3/uL (1.4-4.0); Lymphocytes % 23.8 % (21.3-54.2); Mean Corpuscular HGB Conc 33.5 GM/DL (32-36); Mean Corpuscular Volume 93.7 FL (87-102); Mean Platelet Volume 10.9 FL (9.6-12.0); Monocytes % 8.3 % (1.7-12.7); Neutrophils % 64.4 % (38.7-73.9); Platelet Count 206 T/CUMM (130-400); Red Blood Count 2.52 MC/CUMM (3.8-5.5); Red Cell Distribution Width 13.6 % (9.3-17.3); White Blood Count 6.7 T/CUMM (4-12)
[2021-10-19 05:40] LABS: Calcium 6.8 MG/DL (8.5-10.1); Osmolality,Calculated 283.5 MOS/KG (273-304); Potassium 2.8 MMOL/L (3.5-5.1)
[2021-10-19] MEDS: SODIUM CHLORIDE 0.9% 1,000 ML IV SCH ×2 (06:55→23:13)
[2021-10-19] MEDS: INSULIN LISPRO 100 UNIT/ML SUBCUT SCH ×4 (08:23→21:31)
[2021-10-19] MEDS ORDERED: POTASSIUM BICARB EFFERVESCENT 20 MEQ TAB.EFF PO ONE (09:00)
[2021-10-19] MEDS: carvediloL 6.25 MG TABLET PO SCH ×2 (09:16→16:39)
[2021-10-19] MEDS: POTASSIUM CHLORIDE 20 MEQ TABLET PO SCH ×2 (09:16→21:24)
[2021-10-19] MEDS: GENTAMICIN 0.1% OINT 15 GM TUBE TOP SCH ×4 (09:17→21:25)
[2021-10-19] MEDS ORDERED: DEXTROSE 50% 25 GM/50 ML VIAL IV PRN (09:52)
[2021-10-19] MEDS ORDERED: GLUCAGON 1 MG VIAL IM PRN (09:52)
[2021-10-19] MEDS: PANTOPRAZOLE 40 MG VIAL IV SCH ×2 (10:20→21:28)
[2021-10-19] MEDS: ceFAZolin 1,000 MG VIAL INTRAPERIT SCH ×2 (13:32→17:48)
[2021-10-19 14:27] LABS: Hematocrit 25.5 VOL% (35.7-47.0); Hemoglobin 8.5 GM/DL (12.0-16.0)
[2021-10-19] MEDS: MONTELUKAST 10 MG TABLET PO SCH (21:24)
[2021-10-19] MEDS: PARoxetine 20 MG TABLET PO SCH (21:24)
[2021-10-19] MEDS: GABAPENTIN 400 MG CAPSULE PO SCH (21:25)
[2021-10-19] MEDS: ROSUVASTATIN 20 MG TABLET PO SCH (21:25)
[2021-10-19] MEDS: ASPIRIN EC 81 MG TABLET PO SCH (21:25)
[2021-10-20] MEDS: metroNIDAZOLE INJ 500 MG/100 ML PREMIX IV SCH ×2 (01:58→15:11)
[2021-10-20 05:30] LABS: Basophils % 0.5 % (0.0-0.8); Eosinophils # 0.3 10*3/uL (0.0-0.87); Eosinophils % 3.6 % (0.00-10.9); Hematocrit 23.7 VOL% (35.7-47.0); Hemoglobin 7.9 GM/DL (12.0-16.0); Immature Granulocytes % 0.9 %; Immature Granulocytes Absolute 0.07 #; Lymphocytes # 1.4 10*3/uL (1.4-4.0); Lymphocytes % 18.4 % (21.3-54.2); Mean Corpuscular HGB Conc 33.3 GM/DL (32-36); Mean Corpuscular Volume 92.6 FL (87-102); Mean Platelet Volume 10.3 FL (9.6-12.0); Monocytes % 7.8 % (1.7-12.7); Neutrophils % 68.8 % (38.7-73.9); Platelet Count 225 T/CUMM (130-400); Red Blood Count 2.56 MC/CUMM (3.8-5.5); Red Cell Distribution Width 13.8 % (9.3-17.3); White Blood Count 7.8 T/CUMM (4-12)
[2021-10-20 05:50] LABS: Calcium 7.1 MG/DL (8.5-10.1); Osmolality,Calculated 282.3 MOS/KG (273-304); Potassium 2.9 MMOL/L (3.5-5.1)
[2021-10-20] MEDS ORDERED: POTASSIUM CHLORIDE 20 MEQ TABLET PO ONE (08:16)
[2021-10-20] MEDS: INSULIN LISPRO 100 UNIT/ML SUBCUT SCH ×4 (09:09→22:10)
[2021-10-20] MEDS: carvediloL 6.25 MG TABLET PO SCH ×2 (09:55→18:04)
[2021-10-20] MEDS: POTASSIUM CHLORIDE 20 MEQ TABLET PO SCH ×2 (09:59→22:10)
[2021-10-20] MEDS: SUCRALFATE 1 GM/10 ML UDCUP PO SCH ×3 (14:37→22:08)
[2021-10-20] MEDS: GENTAMICIN 0.1% OINT 15 GM TUBE TOP SCH ×4 (14:37→22:11)
[2021-10-20] MEDS: metroNIDAZOLE 500 MG TABLET PO SCH ×2 (14:37→22:09)
[2021-10-20] MEDS: SODIUM CHLORIDE 0.9% 1,000 ML IV SCH (14:45)
[2021-10-20] MEDS: PANTOPRAZOLE 40 MG VIAL IV SCH (15:11)
[2021-10-20] MEDS ORDERED: FLUCONAZOLE INJ 200 MG/100 ML PREMIX IV SCH (17:00)
[2021-10-20] MEDS: ceFAZolin 1,000 MG VIAL INTRAPERIT SCH (19:05)
[2021-10-20] MEDS: PANTOPRAZOLE 40 MG TABLET PO SCH (22:08)
[2021-10-20] MEDS: ASPIRIN EC 81 MG TABLET PO SCH (22:09)
[2021-10-20] MEDS: ROSUVASTATIN 20 MG TABLET PO SCH (22:09)
[2021-10-20] MEDS: MONTELUKAST 10 MG TABLET PO SCH (22:09)
[2021-10-20] MEDS: PARoxetine 20 MG TABLET PO SCH (22:09)
[2021-10-20] MEDS: GABAPENTIN 400 MG CAPSULE PO SCH (22:10)
[2021-10-21] MEDS: SODIUM CHLORIDE 0.9% 1,000 ML IV SCH (04:40)
[2021-10-21 06:39] LABS: Basophils % 0.3 % (0.0-0.8); Eosinophils # 0.3 10*3/uL (0.0-0.87); Eosinophils % 4.2 % (0.00-10.9); Hematocrit 23.6 VOL% (35.7-47.0); Hemoglobin 8.1 GM/DL (12.0-16.0); Immature Granulocytes % 0.6 %; Immature Granulocytes Absolute 0.04 #; Lymphocytes # 1.6 10*3/uL (1.4-4.0); Lymphocytes % 24.3 % (21.3-54.2); Mean Corpuscular HGB Conc 34.3 GM/DL (32-36); Mean Corpuscular Volume 91.8 FL (87-102); Mean Platelet Volume 10.2 FL (9.6-12.0); Monocytes % 7.5 % (1.7-12.7); Neutrophils % 63.1 % (38.7-73.9); Platelet Count 220 T/CUMM (130-400); Red Blood Count 2.57 MC/CUMM (3.8-5.5); Red Cell Distribution Width 13.5 % (9.3-17.3); White Blood Count 6.6 T/CUMM (4-12)
[2021-10-21 06:55] LABS: Calcium 7.3 MG/DL (8.5-10.1); Osmolality,Calculated 282.7 MOS/KG (273-304); Potassium 3.4 MMOL/L (3.5-5.1)
[2021-10-21] MEDS: POTASSIUM CHLORIDE 20 MEQ TABLET PO SCH (09:22)
[2021-10-21] MEDS: metroNIDAZOLE 500 MG TABLET PO SCH ×2 (09:23→15:50)
[2021-10-21] MEDS: PANTOPRAZOLE 40 MG TABLET PO SCH (09:23)
[2021-10-21] MEDS: carvediloL 6.25 MG TABLET PO SCH (09:23)
[2021-10-21] MEDS: INSULIN LISPRO 100 UNIT/ML SUBCUT SCH ×2 (09:23→13:20)
[2021-10-21] MEDS: SUCRALFATE 1 GM/10 ML UDCUP PO SCH ×2 (09:24→13:20)
[2021-10-21] MEDS: GENTAMICIN 0.1% OINT 15 GM TUBE TOP SCH ×2 (09:24→15:50)
[2021-10-21 11:42] VITALS: BP 152/51
== END 2021-10-21 16:05 | disposition home health service (06) | DRG 391 ==
LOC: EDBD → EDUNIT# → N.ED 16:27 → N.EDINP 21:44 → N.5E 10-18 17:34
PROVIDERS: ADMIT Internal Medicine; ATTEND Internal Medicine

== ENCOUNTER 2022-02-02 21:34 | Inpatient (IN) ==
[2022-02-02] MEDS ORDERED: LABETALOL 20 MG/4 ML SYRINGE IV STA (21:40)
[2022-02-02 22:36] LABS: Basophils % 0.1 % (0.0-0.8); Eosinophils # 0.1 10*3/uL (0.0-0.87); Eosinophils % 0.5 % (0.00-10.9); Hematocrit 26.9 VOL% (35.7-47.0); Hemoglobin 9.1 GM/DL (12.0-16.0); Immature Granulocytes % 0.5 %; Immature Granulocytes Absolute 0.07 #; Lymphocytes # 1.7 10*3/uL (1.4-4.0); Lymphocytes % 12.9 % (21.3-54.2); Mean Corpuscular HGB Conc 33.8 GM/DL (32-36); Mean Corpuscular Volume 85.4 FL (87-102); Mean Platelet Volume 9.9 FL (9.6-12.0); Monocytes # 0.5 10*3/uL (0.11-0.8); Monocytes % 3.7 % (1.7-12.7); Neutrophils % 82.3 % (38.7-73.9); Platelet Count 321 T/CUMM (130-400); Red Blood Count 3.15 MC/CUMM (3.8-5.5); Red Cell Distribution Width 12.7 % (9.3-17.3); White Blood Count 13.4 T/CUMM (4-12)
[2022-02-02 22:46] LABS: INR 0.9; PT Patient Result 10.4 SECS (10.5-12.0); Partial Thromboplastin Time 24.8 SECS (23.8-32.1)
[2022-02-02 22:59] LABS: Alanine Aminotransferase 19 U/L (13-56); Albumin 2.3 G/DL (3.4-5.0); Alkaline Phosphatase 110 U/L (45-117); Aspartate Amino Transferase 24 U/L (0-37); Blood Urea Nitrogen 15 MG/DL (7-18); Calcium 6.8 MG/DL (8.5-10.1); Carbon Dioxide 28 MMOL/L (21-32); Chloride 105 MMOL/L (98-107); Glucose 275 MG/DL (74-106); Sodium 143 MMOL/L (136-145); Total Protein 6.3 G/DL (6.4-8.2)
[2022-02-02 23:00] LABS: Estimated Glom Filtration Rate 0 ML/MIN
[2022-02-02] MEDS ORDERED: DILTIAZEM INJ 100 MG in SODIUM CHLORIDE 0.9% 100 ML IV SCH (23:00)
[2022-02-02 23:01] LABS: Potassium 2.4 MMOL/L (3.5-5.1)
[2022-02-02 23:02] LABS: Bacteria,Urine Occasional /HPF (Few); RBC,Urine <1 /HPF (0-4); Squamous Epithelial Cell,Urine Occasional /HPF (0-10)
[2022-02-02 23:03] LABS: Bilirubin,Urine Negative (Negative); Blood, Urine Trace mg/dL (Negative); Glucose,Urine (UA) 250 mg/dL (Negative); Ketones,Urine Negative (Negative); Nitrite,Urine Negative (Negative); Protein,Urine 100 mg/dL (Negative); Urine Appearance Clear (Clear); Urine Color Yellow (Yellow); Urine Urobilinogen 0.2 eU/dL (<2.0); Urine pH 8.5 (4.5-8.0)
[2022-02-02] MEDS ORDERED: POTASSIUM CHLORIDE RIDER 10 MEQ/100 ML PREMIX IV ONE (23:04)
[2022-02-02] MEDS ORDERED: niCARdipine INJ 25 MG in SODIUM CHLORIDE 0.9% 240 ML IV PRN (23:08)
[2022-02-02 23:44] LABS: Barbiturates Screen,Urine Negative (Negative); Benzodiazepines Screen,Urine Negative (Negative); Cannabinoid Screen,Urine Negative (Negative); Opiate Screen,Urine Negative (Negative); Phencyclidine Screen,Urine Negative (Negative)
[2022-02-03] MEDS ORDERED: ALBUTEROL 2.5 MG/3 ML NEB RESP TX PRN (00:21)
[2022-02-03] MEDS ORDERED: MORPHINE 2 MG/1 ML SYRINGE IV PRN (00:22)
[2022-02-03] MEDS ORDERED: ENOXAPARIN 80 MG/0.8 ML SYRINGE SUBCUT SCH (00:30)
[2022-02-03 00:41] LABS: Risk Ratio 4.51
[2022-02-03] MEDS ORDERED: POTASSIUM CHLORIDE RIDER 10 MEQ/100 ML PREMIX IV ONE (02:23)
[2022-02-03 05:39] LABS: Basophils % 0.1 % (0.0-0.8); Hematocrit 29.4 VOL% (35.7-47.0); Hemoglobin 9.7 GM/DL (12.0-16.0); Immature Granulocytes % 0.8 %; Immature Granulocytes Absolute 0.09 #; Lymphocytes # 1.3 10*3/uL (1.4-4.0); Mean Platelet Volume 9.9 FL (9.6-12.0); Monocytes # 0.3 10*3/uL (0.11-0.8); Monocytes % 2.4 % (1.7-12.7); Neutrophils % 85.7 % (38.7-73.9); Platelet Count 282 T/CUMM (130-400); Red Blood Count 3.38 MC/CUMM (3.8-5.5); Red Cell Distribution Width 12.9 % (9.3-17.3); White Blood Count 11.7 T/CUMM (4-12)
[2022-02-03 05:53] LABS: Osmolality,Calculated 292.5 MOS/KG (273-304); Potassium 2.7 MMOL/L (3.5-5.1)
[2022-02-03] MEDS ORDERED: DEXTROSE 10% 25 GM/250 ML BAG IV PRN (07:42)
[2022-02-03] MEDS ORDERED: GLUCAGON 1 MG VIAL IM PRN (07:42)
[2022-02-03] MEDS: ENOXAPARIN 30 MG/0.3 ML SYRINGE SUBCUT SCH (09:16)
[2022-02-03] MEDS ORDERED: hydrALAZINE 20 MG/1 ML VIAL IV ONE (09:19)
[2022-02-03] MEDS: ONDANSETRON 4 MG/2 ML VIAL IV PRN ×2 (11:56→18:01)
[2022-02-03] MEDS ORDERED: PROMETHAZINE 25 MG/1 ML VIAL IM PRN (12:38)
[2022-02-03] MEDS: INSULIN REGULAR 100 UNIT/ML SUBCUT SCH ×2 (12:46→18:31)
[2022-02-03] MEDS: ASPIRIN CHEW 81 MG TABLET PO SCH (15:13)
[2022-02-03] MEDS: ROSUVASTATIN 20 MG TABLET NG SCH (15:13)
[2022-02-03] MEDS: carvediloL 6.25 MG TABLET PO SCH (18:00)
[2022-02-03] MEDS ORDERED: POTASSIUM CHLORIDE 20 MEQ/10 ML VIAL INTRAPERIT PRN (20:08)
[2022-02-04] MEDS: carvediloL 6.25 MG TABLET PO SCH ×3 (00:05→20:53)
[2022-02-04] MEDS: hydrALAZINE 20 MG/1 ML VIAL IV PRN ×2 (00:37→09:18)
[2022-02-04] MEDS: INSULIN REGULAR 100 UNIT/ML SUBCUT SCH ×4 (00:38→18:12)
[2022-02-04] MEDS: ONDANSETRON 4 MG/2 ML VIAL IV PRN (02:05)
[2022-02-04 04:35] LABS: Basophils % 0.1 % (0.0-0.8); Eosinophils % 0.2 % (0.00-10.9); Hematocrit 30.4 VOL% (35.7-47.0); Hemoglobin 9.8 GM/DL (12.0-16.0); Immature Granulocytes % 0.5 %; Immature Granulocytes Absolute 0.07 #; Lymphocytes # 1.8 10*3/uL (1.4-4.0); Lymphocytes % 12.9 % (21.3-54.2); Mean Corpuscular HGB Conc 32.2 GM/DL (32-36); Mean Corpuscular Volume 87.4 FL (87-102); Mean Platelet Volume 10.2 FL (9.6-12.0); Monocytes # 0.6 10*3/uL (0.11-0.8); Monocytes % 4.6 % (1.7-12.7); Neutrophils % 81.7 % (38.7-73.9); Platelet Count 313 T/CUMM (130-400); Red Blood Count 3.48 MC/CUMM (3.8-5.5); Red Cell Distribution Width 13.1 % (9.3-17.3); White Blood Count 13.6 T/CUMM (4-12)
[2022-02-04 04:44] LABS: Calcium 7.3 MG/DL (8.5-10.1); Potassium 2.6 MMOL/L (3.5-5.1)
[2022-02-04 04:48] LABS: Phosphorous 1.4 MG/DL (2.5-4.9)
[2022-02-04] MEDS: ENOXAPARIN 30 MG/0.3 ML SYRINGE SUBCUT SCH (06:26)
[2022-02-04] MEDS ORDERED: MAGNESIUM SULF RIDER 2 GM/50 ML PREMIX IV PRN (07:34)
[2022-02-04] MEDS ORDERED: POTASSIUM CHLORIDE RIDER 10 MEQ/100 ML PREMIX IV PRN (07:34)
[2022-02-04] MEDS ORDERED: MAGNESIUM SULF RIDER 4 GM/100 ML PREMIX IV PRN (07:34)
[2022-02-04] MEDS: ASPIRIN CHEW 81 MG TABLET PO SCH (09:17)
[2022-02-04] MEDS: POTASSIUM BICARB EFFERVESCENT 20 MEQ TAB.EFF PER TUBE PRN ×6 (09:17→22:54)
[2022-02-04] MEDS: ROSUVASTATIN 20 MG TABLET NG SCH (09:17)
[2022-02-04 18:05] LABS: Calcium 7.5 MG/DL (8.5-10.1); Osmolality,Calculated 291.8 MOS/KG (273-304); Potassium 3.1 MMOL/L (3.5-5.1)
[2022-02-04] MEDS ORDERED: amLODIPine 10 MG TABLET PO SCH (21:00)
[2022-02-05] MEDS: INSULIN REGULAR 100 UNIT/ML SUBCUT SCH ×2 (00:33→06:10)
[2022-02-05] MEDS: POTASSIUM BICARB EFFERVESCENT 20 MEQ TAB.EFF PER TUBE PRN (00:34)
[2022-02-05 04:30] LABS: Basophils % 0.2 % (0.0-0.8); Eosinophils % 0.4 % (0.00-10.9); Hematocrit 29.7 VOL% (35.7-47.0); Hemoglobin 9.4 GM/DL (12.0-16.0); Immature Granulocytes % 0.4 %; Immature Granulocytes Absolute 0.04 #; Lymphocytes # 2.1 10*3/uL (1.4-4.0); Lymphocytes % 19.6 % (21.3-54.2); Mean Corpuscular HGB Conc 31.6 GM/DL (32-36); Mean Platelet Volume 10.1 FL (9.6-12.0); Monocytes # 0.8 10*3/uL (0.11-0.8); Monocytes % 7.1 % (1.7-12.7); Neutrophils % 72.3 % (38.7-73.9); Platelet Count 262 T/CUMM (130-400); Red Cell Distribution Width 13.3 % (9.3-17.3); White Blood Count 10.9 T/CUMM (4-12)
[2022-02-05 04:52] LABS: Calcium 7.7 MG/DL (8.5-10.1); Osmolality,Calculated 287.8 MOS/KG (273-304)
[2022-02-05 04:55] LABS: Alanine Aminotransferase 14 U/L (13-56); Albumin 2.1 G/DL (3.4-5.0); Alkaline Phosphatase 91 U/L (45-117); Aspartate Amino Transferase 13 U/L (0-37); Bilirubin,Total < 0.39 MG/DL (0.20-1.00); Blood Urea Nitrogen 16 MG/DL (7-18); Calcium 7.2 MG/DL (8.5-10.1); Carbon Dioxide 37 MMOL/L (21-32); Chloride 104 MMOL/L (98-107); Estimated Glom Filtration Rate 14 ML/MIN; Glucose 132 MG/DL (74-106); Osmolality,Calculated 290.7 MOS/KG (273-304); Sodium 145 MMOL/L (136-145); Total Protein 6.3 G/DL (6.4-8.2)
[2022-02-05] MEDS: POTASSIUM CHLORIDE RIDER 20 MEQ/100 ML PREMIX IV PRN ×2 (06:10→14:41)
[2022-02-05] MEDS: ENOXAPARIN 30 MG/0.3 ML SYRINGE SUBCUT SCH (06:17)
[2022-02-05] MEDS: carvediloL 6.25 MG TABLET PO SCH ×2 (14:40→21:16)
[2022-02-05] MEDS: ASPIRIN CHEW 81 MG TABLET PO SCH (14:40)
[2022-02-05] MEDS: ROSUVASTATIN 20 MG TABLET NG SCH (14:40)
[2022-02-05] MEDS: POTASSIUM CHLORIDE 20 MEQ/10 ML VIAL INTRAPERIT SCH ×2 (17:17→21:17)
[2022-02-05] MEDS: amLODIPine 5 MG TABLET PO SCH (21:16)
[2022-02-06] MEDS: POTASSIUM CHLORIDE 20 MEQ/10 ML VIAL INTRAPERIT SCH ×4 (03:06→21:44)
[2022-02-06] MEDS: ENOXAPARIN 30 MG/0.3 ML SYRINGE SUBCUT SCH (06:10)
[2022-02-06 06:32] LABS: Basophils % 0.2 % (0.0-0.8); Eosinophils # 0.1 10*3/uL (0.0-0.87); Eosinophils % 0.9 % (0.00-10.9); Hematocrit 31.8 VOL% (35.7-47.0); Immature Granulocytes % 0.4 %; Immature Granulocytes Absolute 0.04 #; Lymphocytes # 2.4 10*3/uL (1.4-4.0); Lymphocytes % 24.3 % (21.3-54.2); Mean Corpuscular HGB Conc 31.4 GM/DL (32-36); Mean Corpuscular Volume 91.9 FL (87-102); Mean Platelet Volume 11.2 FL (9.6-12.0); Monocytes # 0.6 10*3/uL (0.11-0.8); Monocytes % 6.4 % (1.7-12.7); Neutrophils % 67.8 % (38.7-73.9); Platelet Count 275 T/CUMM (130-400); Red Blood Count 3.46 MC/CUMM (3.8-5.5); Red Cell Distribution Width 13.3 % (9.3-17.3)
[2022-02-06 07:09] LABS: Calcium 8.4 MG/DL (8.5-10.1); Osmolality,Calculated 292.3 MOS/KG (273-304); Potassium 3.5 MMOL/L (3.5-5.1)
[2022-02-06] MEDS: ASPIRIN CHEW 81 MG TABLET PO SCH (08:26)
[2022-02-06] MEDS: ROSUVASTATIN 20 MG TABLET NG SCH (08:26)
[2022-02-06] MEDS: carvediloL 6.25 MG TABLET PO SCH ×2 (08:26→21:42)
[2022-02-06] MEDS: INSULIN LISPRO 100 UNIT/ML SUBCUT SCH ×3 (13:32→21:43)
[2022-02-06] MEDS: amLODIPine 5 MG TABLET PO SCH (21:41)
[2022-02-07] MEDS: POTASSIUM CHLORIDE 20 MEQ/10 ML VIAL INTRAPERIT SCH ×4 (03:34→22:19)
[2022-02-07] MEDS: ENOXAPARIN 30 MG/0.3 ML SYRINGE SUBCUT SCH (06:07)
[2022-02-07 07:38] LABS: Basophils % 0.4 % (0.0-0.8); Eosinophils # 0.2 10*3/uL (0.0-0.87); Eosinophils % 2.3 % (0.00-10.9); Hematocrit 28.7 VOL% (35.7-47.0); Hemoglobin 8.9 GM/DL (12.0-16.0); Immature Granulocytes % 0.5 %; Immature Granulocytes Absolute 0.04 #; Lymphocytes # 2.7 10*3/uL (1.4-4.0); Lymphocytes % 34.4 % (21.3-54.2); Mean Corpuscular Volume 92.9 FL (87-102); Mean Platelet Volume 11.1 FL (9.6-12.0); Monocytes # 0.6 10*3/uL (0.11-0.8); Monocytes % 7.8 % (1.7-12.7); Neutrophils % 54.6 % (38.7-73.9); Platelet Count 236 T/CUMM (130-400); Red Blood Count 3.09 MC/CUMM (3.8-5.5); Red Cell Distribution Width 13.2 % (9.3-17.3); White Blood Count 7.7 T/CUMM (4-12)
[2022-02-07 07:59] LABS: Calcium 7.6 MG/DL (8.5-10.1); Osmolality,Calculated 290.3 MOS/KG (273-304); Potassium 3.3 MMOL/L (3.5-5.1)
[2022-02-07] MEDS ORDERED: MAGNESIUM SULF RIDER 2 GM/50 ML PREMIX IV ONE (08:30)
[2022-02-07] MEDS: ASPIRIN CHEW 81 MG TABLET PO SCH (10:12)
[2022-02-07] MEDS: ROSUVASTATIN 20 MG TABLET NG SCH (10:12)
[2022-02-07] MEDS: carvediloL 6.25 MG TABLET PO SCH ×2 (10:12→22:10)
[2022-02-07] MEDS: INSULIN LISPRO 100 UNIT/ML SUBCUT SCH ×4 (10:13→23:16)
[2022-02-07] MEDS: amLODIPine 5 MG TABLET PO SCH (22:10)
[2022-02-08] MEDS: POTASSIUM CHLORIDE 20 MEQ/10 ML VIAL INTRAPERIT SCH ×4 (03:19→21:45)
[2022-02-08] MEDS: ENOXAPARIN 30 MG/0.3 ML SYRINGE SUBCUT SCH (06:34)
[2022-02-08 06:35] LABS: Basophils % 0.3 % (0.0-0.8); Eosinophils # 0.2 10*3/uL (0.0-0.87); Eosinophils % 2.7 % (0.00-10.9); Hemoglobin 8.8 GM/DL (12.0-16.0); Immature Granulocytes % 0.3 %; Immature Granulocytes Absolute 0.02 #; Lymphocytes # 2.6 10*3/uL (1.4-4.0); Lymphocytes % 36.1 % (21.3-54.2); Mean Corpuscular HGB Conc 31.4 GM/DL (32-36); Mean Corpuscular Volume 91.2 FL (87-102); Mean Platelet Volume 11.3 FL (9.6-12.0); Monocytes # 0.6 10*3/uL (0.11-0.8); Monocytes % 8.1 % (1.7-12.7); Neutrophils % 52.5 % (38.7-73.9); Platelet Count 248 T/CUMM (130-400); Red Blood Count 3.07 MC/CUMM (3.8-5.5); Red Cell Distribution Width 13.1 % (9.3-17.3); White Blood Count 7.1 T/CUMM (4-12)
[2022-02-08 06:52] LABS: Calcium 8.1 MG/DL (8.5-10.1); Osmolality,Calculated 289.3 MOS/KG (273-304); Potassium 3.3 MMOL/L (3.5-5.1)
[2022-02-08] MEDS ORDERED: POTASSIUM BICARB EFFERVESCENT 20 MEQ TAB.EFF PO ONE ×2 (07:56→08:00)
[2022-02-08] MEDS: INSULIN LISPRO 100 UNIT/ML SUBCUT SCH ×4 (08:47→21:44)
[2022-02-08] MEDS: ASPIRIN CHEW 81 MG TABLET PO SCH (08:48)
[2022-02-08] MEDS: carvediloL 6.25 MG TABLET PO SCH ×2 (08:48→16:46)
[2022-02-08] MEDS: ROSUVASTATIN 20 MG TABLET NG SCH (08:48)
[2022-02-08] MEDS: amLODIPine 5 MG TABLET PO SCH (21:44)
[2022-02-09] MEDS: POTASSIUM CHLORIDE 20 MEQ/10 ML VIAL INTRAPERIT SCH ×3 (04:30→15:35)
[2022-02-09] MEDS ORDERED: HEPARIN 5,000 UNIT/1 ML VIAL SUBCUT SCH (09:00)
[2022-02-09] MEDS ORDERED: POTASSIUM CHLORIDE 20 MEQ TABLET PO SCH (09:00)
[2022-02-09] MEDS: carvediloL 6.25 MG TABLET PO SCH (09:18)
[2022-02-09] MEDS: ASPIRIN CHEW 81 MG TABLET PO SCH (09:18)
[2022-02-09] MEDS: ROSUVASTATIN 20 MG TABLET NG SCH (09:18)
[2022-02-09] MEDS: INSULIN LISPRO 100 UNIT/ML SUBCUT SCH ×2 (09:19→12:00)
[2022-02-09 09:20] LABS: Basophils % 0.4 % (0.0-0.8); Eosinophils # 0.2 10*3/uL (0.0-0.87); Eosinophils % 2.3 % (0.00-10.9); Hematocrit 28.1 VOL% (35.7-47.0); Immature Granulocytes % 0.3 %; Immature Granulocytes Absolute 0.02 #; Lymphocytes # 2.3 10*3/uL (1.4-4.0); Lymphocytes % 32.6 % (21.3-54.2); Mean Corpuscular Volume 89.5 FL (87-102); Monocytes # 0.5 10*3/uL (0.11-0.8); Monocytes % 7.5 % (1.7-12.7); Neutrophils % 56.9 % (38.7-73.9); Platelet Count 247 T/CUMM (130-400); Red Blood Count 3.14 MC/CUMM (3.8-5.5); Red Cell Distribution Width 13.1 % (9.3-17.3); White Blood Count 6.9 T/CUMM (4-12)
[2022-02-09 09:49] LABS: Calcium 8.2 MG/DL (8.5-10.1); Osmolality,Calculated 289.3 MOS/KG (273-304); Potassium 3.9 MMOL/L (3.5-5.1)
[2022-02-09 09:53] LABS: Alanine Aminotransferase 11 U/L (13-56); Albumin 1.9 G/DL (3.4-5.0); Alkaline Phosphatase 100 U/L (45-117); Aspartate Amino Transferase 13 U/L (0-37); Bilirubin,Total < 0.39 MG/DL (0.20-1.00); Blood Urea Nitrogen 16 MG/DL (7-18); Calcium 8.2 MG/DL (8.5-10.1); Carbon Dioxide 31 MMOL/L (21-32); Chloride 106 MMOL/L (98-107); Estimated Glom Filtration Rate 12 ML/MIN; Glucose 243 MG/DL (74-106); Osmolality,Calculated 289.3 MOS/KG (273-304); Potassium 3.9 MMOL/L (3.5-5.1); Sodium 141 MMOL/L (136-145); Total Protein 6.1 G/DL (6.4-8.2)
[2022-02-09 12:27] VITALS: BP 130/59
== END 2022-02-09 15:42 | DRG 280 ==
LOC: N.ED 21:34 → N.EDINP 02-03 00:21 → SUATTDRO 02-03 00:21 → N.CC 02-03 02:58 → N.3E 02-05 18:41
PROVIDERS: ADMIT Internal Medicine; ATTEND Family Medicine

== ENCOUNTER 2022-03-06 12:11 | Inpatient (IN) ==
[2022-03-06] MEDS ORDERED: INSULIN REGULAR 100 UNIT/ML IV STA (12:43)
[2022-03-06] MEDS ORDERED: PROMETHAZINE 25 MG/1 ML VIAL ONE (12:43)
[2022-03-06] MEDS ORDERED: SODIUM CHLORIDE 0.9% 1,000 ML IV STA (12:43)
[2022-03-06] MEDS ORDERED: PROMETHAZINE 25 MG/1 ML VIAL IM STA (12:43)
[2022-03-06] MEDS ORDERED: hydrALAZINE 20 MG/1 ML VIAL IV STA (12:43)
[2022-03-06 13:21] LABS: Arterial Base Excess iSTAT 8 MMOL/L (-2.5-2.5); Arterial Bicarbonate iSTAT 31.6 MMOL/L (20-26); Arterial O2 Saturation iSTAT 95 % (95-100); Arterial PCO2 iSTAT 42 MM HG (35-48); Arterial PO2 iSTAT 71 MM HG (80-95); Arterial Total CO2 iSTAT 33 MMO/L (23-27); Arterial pH iSTAT 7.489 (7.35-7.45)
[2022-03-06 13:48] LABS: Basophils % 0.1 % (0.0-0.8); Eosinophils % 0.1 % (0.00-10.9); Hematocrit 33.1 VOL% (35.7-47.0); Hemoglobin 10.9 GM/DL (12.0-16.0); Immature Granulocytes % 0.3 %; Immature Granulocytes Absolute 0.02 #; Lymphocytes # 0.6 10*3/uL (1.4-4.0); Lymphocytes % 8.2 % (21.3-54.2); Mean Corpuscular HGB Conc 32.9 GM/DL (32-36); Mean Corpuscular Volume 90.9 FL (87-102); Mean Platelet Volume 11.3 FL (9.6-12.0); Monocytes # 0.4 10*3/uL (0.11-0.8); Monocytes % 5.4 % (1.7-12.7); Neutrophils % 85.9 % (38.7-73.9); Platelet Count 201 T/CUMM (130-400); Red Blood Count 3.64 MC/CUMM (3.8-5.5); Red Cell Distribution Width 15.2 % (9.3-17.3); White Blood Count 7.3 T/CUMM (4-12)
[2022-03-06] MEDS ORDERED: ONDANSETRON 4 MG/2 ML VIAL ONE (14:01)
[2022-03-06 14:10] LABS: Alanine Aminotransferase 19 U/L (13-56); Albumin 2.7 G/DL (3.4-5.0); Alkaline Phosphatase 129 U/L (45-117); Amylase 60 U/L (25-115); Aspartate Amino Transferase 15 U/L (0-37); Blood Urea Nitrogen 19 MG/DL (7-18); Calcium 8.4 MG/DL (8.5-10.1); Carbon Dioxide 31 MMOL/L (21-32); Chloride 102 MMOL/L (98-107); Osmolality,Calculated 305.4 MOS/KG (273-304); Potassium 3.5 MMOL/L (3.5-5.1); Sodium 140 MMOL/L (136-145); Total Protein 7.9 G/DL (6.4-8.2)
[2022-03-06 14:14] LABS: Glucose 547 MG/DL (74-106)
[2022-03-06 14:22] LABS: Platelet Estimate Normal
[2022-03-06 14:52] LABS: Bacteria,Urine Occasional /HPF (Few); Bilirubin,Urine Negative (Negative); Blood, Urine Trace mg/dL (Negative); Glucose,Urine (UA) 500 mg/dL (Negative); Ketones,Urine Negative (Negative); Nitrite,Urine Negative (Negative); Protein,Urine 100 mg/dL (Negative); RBC,Urine 1 /HPF (0-4); Squamous Epithelial Cell,Urine Few /HPF (0-10); Urine Appearance Slightly Cloudy (Clear); Urine Color Yellow (Yellow); Urine Specific Gravity 1.015 (1.001-1.035); Urine Urobilinogen 0.2 eU/dL (<2.0); Urine pH 8.5 (4.5-8.0)
[2022-03-06] MEDS ORDERED: DEXTROSE 50% 25 GM/50 ML VIAL IV PRN (15:58)
[2022-03-06] MEDS ORDERED: GLUCAGON 1 MG VIAL IM PRN ×2 (15:58)
[2022-03-06] MEDS ORDERED: MAGNESIUM SULF RIDER 2 GM/50 ML PREMIX IV SCH (16:00)
[2022-03-06] MEDS ORDERED: DEXTROSE 10% 250 ML BAG IV PRN (16:11)
[2022-03-06] MEDS ORDERED: hydrALAZINE 20 MG/1 ML VIAL IV PRN (16:14)
[2022-03-06] MEDS ORDERED: SODIUM CHLORIDE 0.9% 1,000 ML IV SCH (16:30)
[2022-03-06] MEDS ORDERED: MAGNESIUM SULF RIDER 2 GM/50 ML PREMIX IV ONE (16:42)
[2022-03-06] MEDS: HEPARIN 5,000 UNIT/1 ML VIAL SUBCUT SCH (16:46)
[2022-03-06] MEDS: INSULIN LISPRO 100 UNIT/ML SUBCUT SCH ×2 (16:50→22:01)
[2022-03-06] MEDS ORDERED: MAGNESIUM SULF RIDER 4 GM/100 ML PREMIX IV ONE (17:00)
[2022-03-06] MEDS: SEVELAMER CARBONATE 800 MG TABLET PO SCH (18:26)
[2022-03-06] MEDS ORDERED: PANTOPRAZOLE 40 MG VIAL IV ONE (20:23)
[2022-03-06] MEDS ORDERED: ONDANSETRON 4 MG/2 ML VIAL IV PRN (20:27)
[2022-03-06] MEDS ORDERED: INSULIN NPH/REGULAR 70/30 100 UNIT/ML SUBCUT SCH (21:00)
[2022-03-06] MEDS ORDERED: ASPIRIN EC 81 MG TABLET PO SCH (21:00)
[2022-03-06 21:03] LABS: Hematocrit 33.5 VOL% (35.7-47.0); Hemoglobin 10.9 GM/DL (12.0-16.0)
[2022-03-06] MEDS: ROSUVASTATIN 20 MG TABLET PO SCH (22:02)
[2022-03-06] MEDS: PARoxetine 20 MG TABLET PO SCH (22:02)
[2022-03-06] MEDS: GABAPENTIN 400 MG CAPSULE PO SCH (22:02)
[2022-03-06] MEDS: carvediloL 6.25 MG TABLET PO SCH (22:02)
[2022-03-06] MEDS: FERROUS SULFATE 325 MG TABLET PO SCH (22:03)
[2022-03-07] MEDS: HEPARIN 5,000 UNIT/1 ML VIAL SUBCUT SCH (04:05)
[2022-03-07 05:34] LABS: Basophils % 0.1 % (0.0-0.8); Hematocrit 30.9 VOL% (35.7-47.0); Hemoglobin 9.8 GM/DL (12.0-16.0); Immature Granulocytes % 0.4 %; Immature Granulocytes Absolute 0.03 #; Lymphocytes # 1.4 10*3/uL (1.4-4.0); Lymphocytes % 17.7 % (21.3-54.2); Mean Corpuscular HGB Conc 31.7 GM/DL (32-36); Mean Corpuscular Volume 94.8 FL (87-102); Mean Platelet Volume 10.3 FL (9.6-12.0); Monocytes # 0.9 10*3/uL (0.11-0.8); Neutrophils % 69.8 % (38.7-73.9); Platelet Count 224 T/CUMM (130-400); Red Blood Count 3.26 MC/CUMM (3.8-5.5); Red Cell Distribution Width 15.6 % (9.3-17.3); White Blood Count 7.7 T/CUMM (4-12)
[2022-03-07 06:04] LABS: Risk Ratio 6.78; Thyroid Stimulating Hormone 0.761 uIU/ml (0.358-3.74)
[2022-03-07] MEDS ORDERED: PANTOPRAZOLE 40 MG TABLET PO SCH (06:30)
[2022-03-07] MEDS: INSULIN LISPRO 100 UNIT/ML SUBCUT SCH ×4 (07:05→21:57)
[2022-03-07] MEDS ORDERED: INSULIN NPH/REGULAR 70/30 100 UNIT/ML SUBCUT SCH (08:00)
[2022-03-07] MEDS: PANTOPRAZOLE 40 MG VIAL IV SCH ×2 (09:11→21:57)
[2022-03-07] MEDS: POLYETHYLENE GLYCOL POWDER 17 GM PACK PO SCH (09:11)
[2022-03-07] MEDS: GABAPENTIN 400 MG CAPSULE PO SCH ×3 (09:12→21:56)
[2022-03-07] MEDS: FERROUS SULFATE 325 MG TABLET PO SCH ×2 (09:12→21:57)
[2022-03-07] MEDS: SEVELAMER CARBONATE 800 MG TABLET PO SCH ×3 (09:12→16:50)
[2022-03-07] MEDS: DOCUSATE SODIUM 100 MG CAPSULE PO SCH (09:13)
[2022-03-07] MEDS: INSULIN NPH/REGULAR 70/30 100 UNIT/ML SUBCUT SCH ×2 (09:13→16:50)
[2022-03-07] MEDS: carvediloL 6.25 MG TABLET PO SCH ×2 (09:13→21:57)
[2022-03-07] MEDS ORDERED: MAGNESIUM SULF RIDER 2 GM/50 ML PREMIX IV PRN (15:15)
[2022-03-07] MEDS ORDERED: MAGNESIUM SULF RIDER 4 GM/100 ML PREMIX IV PRN (15:15)
[2022-03-07] MEDS: PARoxetine 20 MG TABLET PO SCH (21:56)
[2022-03-07] MEDS: ROSUVASTATIN 20 MG TABLET PO SCH (21:56)
[2022-03-08 06:43] LABS: Basophils % 0.2 % (0.0-0.8); Eosinophils # 0.2 10*3/uL (0.0-0.87); Eosinophils % 3.3 % (0.00-10.9); Hematocrit 26.6 VOL% (35.7-47.0); Hemoglobin 8.3 GM/DL (12.0-16.0); Immature Granulocytes % 0.2 %; Immature Granulocytes Absolute 0.01 #; Lymphocytes # 1.9 10*3/uL (1.4-4.0); Lymphocytes % 30.3 % (21.3-54.2); Mean Corpuscular HGB Conc 31.2 GM/DL (32-36); Mean Corpuscular Volume 95.3 FL (87-102); Mean Platelet Volume 10.5 FL (9.6-12.0); Monocytes # 0.8 10*3/uL (0.11-0.8); Monocytes % 12.8 % (1.7-12.7); Neutrophils % 53.2 % (38.7-73.9); Platelet Count 207 T/CUMM (130-400); Red Blood Count 2.79 MC/CUMM (3.8-5.5); Red Cell Distribution Width 15.4 % (9.3-17.3); White Blood Count 6.1 T/CUMM (4-12)
[2022-03-08 07:01] LABS: Calcium 7.8 MG/DL (8.5-10.1)
[2022-03-08] MEDS ORDERED: POTASSIUM CHLORIDE 20 MEQ TABLET PO ONE ×2 (07:58→16:00)
[2022-03-08] MEDS: INSULIN LISPRO 100 UNIT/ML SUBCUT SCH ×4 (08:00→21:24)
[2022-03-08] MEDS: INSULIN NPH/REGULAR 70/30 100 UNIT/ML SUBCUT SCH ×2 (11:55→17:30)
[2022-03-08] MEDS: SODIUM CHLORIDE 0.9% 500 ML IV SCH (12:39)
[2022-03-08] MEDS ORDERED: PHENYLEPHRINE 1 MG/10 ML SYRINGE IV ONE (13:46)
[2022-03-08] MEDS ORDERED: propofoL 200 MG/20 ML VIAL IV ONE (13:46)
[2022-03-08] MEDS ORDERED: LIDOCAINE 2% 5 ML VIAL ONE (13:46)
[2022-03-08] MEDS: SEVELAMER CARBONATE 800 MG TABLET PO SCH ×2 (14:46→17:29)
[2022-03-08] MEDS: DOCUSATE SODIUM 100 MG CAPSULE PO SCH (14:47)
[2022-03-08] MEDS: GABAPENTIN 400 MG CAPSULE PO SCH ×3 (14:47→21:23)
[2022-03-08] MEDS: FERROUS SULFATE 325 MG TABLET PO SCH ×2 (14:47→21:23)
[2022-03-08] MEDS: PANTOPRAZOLE 40 MG VIAL IV SCH ×2 (15:22→21:24)
[2022-03-08] MEDS: POLYETHYLENE GLYCOL POWDER 17 GM PACK PO SCH (15:22)
[2022-03-08] MEDS: FLUCONAZOLE 100 MG TABLET PO SCH (15:23)
[2022-03-08] MEDS: carvediloL 6.25 MG TABLET PO SCH ×2 (15:23→21:23)
[2022-03-08] MEDS: ROSUVASTATIN 20 MG TABLET PO SCH (21:23)
[2022-03-08] MEDS: POTASSIUM CHLORIDE 20 MEQ TABLET PO SCH (21:23)
[2022-03-08] MEDS: PARoxetine 20 MG TABLET PO SCH (21:23)
[2022-03-08] MEDS: MONTELUKAST 10 MG TABLET PO SCH (21:23)
[2022-03-09 08:30] LABS: Basophils % 0.1 % (0.0-0.8); Eosinophils # 0.1 10*3/uL (0.0-0.87); Eosinophils % 1.2 % (0.00-10.9); Hematocrit 29.7 VOL% (35.7-47.0); Hemoglobin 9.2 GM/DL (12.0-16.0); Immature Granulocytes % 0.4 %; Immature Granulocytes Absolute 0.03 #; Lymphocytes # 2.1 10*3/uL (1.4-4.0); Lymphocytes % 27.2 % (21.3-54.2); Mean Corpuscular Volume 95.8 FL (87-102); Mean Platelet Volume 10.6 FL (9.6-12.0); Monocytes # 0.8 10*3/uL (0.11-0.8); Monocytes % 10.3 % (1.7-12.7); Neutrophils % 60.8 % (38.7-73.9); Platelet Count 289 T/CUMM (130-400); Red Cell Distribution Width 15.2 % (9.3-17.3); White Blood Count 7.8 T/CUMM (4-12)
[2022-03-09 08:41] LABS: Calcium 8.1 MG/DL (8.5-10.1); Potassium 3.4 MMOL/L (3.5-5.1)
[2022-03-09 08:58] LABS: Band Neutrophils 5 % (0-10); Hypochromia Slight; Lymphocytes 34 % (20-55); Total Cells Counted 100
[2022-03-09 08:59] LABS: Macrocytosis Slight; Platelet Estimate Normal
[2022-03-09] MEDS: INSULIN LISPRO 100 UNIT/ML SUBCUT SCH ×4 (09:12→21:30)
[2022-03-09] MEDS: INSULIN NPH/REGULAR 70/30 100 UNIT/ML SUBCUT SCH ×2 (09:13→18:11)
[2022-03-09] MEDS: GABAPENTIN 400 MG CAPSULE PO SCH ×3 (10:47→21:26)
[2022-03-09] MEDS: POTASSIUM CHLORIDE 20 MEQ TABLET PO SCH ×2 (10:47→21:26)
[2022-03-09] MEDS: FLUCONAZOLE 100 MG TABLET PO SCH (10:48)
[2022-03-09] MEDS: DOCUSATE SODIUM 100 MG CAPSULE PO SCH (10:48)
[2022-03-09] MEDS: PANTOPRAZOLE 40 MG VIAL IV SCH ×2 (10:48→21:27)
[2022-03-09] MEDS: FERROUS SULFATE 325 MG TABLET PO SCH ×2 (10:48→21:28)
[2022-03-09] MEDS: POLYETHYLENE GLYCOL POWDER 17 GM PACK PO SCH (10:48)
[2022-03-09] MEDS: SEVELAMER CARBONATE 800 MG TABLET PO SCH ×3 (10:49→18:12)
[2022-03-09] MEDS: carvediloL 6.25 MG TABLET PO SCH (11:42)
[2022-03-09] MEDS: SODIUM CHLORIDE 0.9% 500 ML IV SCH (18:12)
[2022-03-09] MEDS: PARoxetine 20 MG TABLET PO SCH (21:28)
[2022-03-09] MEDS: MONTELUKAST 10 MG TABLET PO SCH (21:28)
[2022-03-09] MEDS: ATORVASTATIN 80 MG TABLET PO SCH (21:28)
[2022-03-10 09:16] LABS: Basophils % 0.2 % (0.0-0.8); Eosinophils # 0.2 10*3/uL (0.0-0.87); Hematocrit 33.5 VOL% (35.7-47.0); Hemoglobin 10.6 GM/DL (12.0-16.0); Immature Granulocytes % 0.6 %; Immature Granulocytes Absolute 0.05 #; Lymphocytes % 34.5 % (21.3-54.2); Mean Corpuscular HGB Conc 31.6 GM/DL (32-36); Mean Corpuscular Volume 94.1 FL (87-102); Mean Platelet Volume 10.4 FL (9.6-12.0); Monocytes % 11.4 % (1.7-12.7); Neutrophils % 51.3 % (38.7-73.9); Platelet Count 341 T/CUMM (130-400); Red Blood Count 3.56 MC/CUMM (3.8-5.5); Red Cell Distribution Width 14.6 % (9.3-17.3); White Blood Count 8.6 T/CUMM (4-12)
[2022-03-10 09:43] LABS: Calcium 8.5 MG/DL (8.5-10.1); Osmolality,Calculated 282.3 MOS/KG (273-304); Potassium 3.7 MMOL/L (3.5-5.1)
[2022-03-10] MEDS: INSULIN LISPRO 100 UNIT/ML SUBCUT SCH ×3 (10:42→17:22)
[2022-03-10] MEDS: INSULIN NPH/REGULAR 70/30 100 UNIT/ML SUBCUT SCH ×2 (10:43→17:22)
[2022-03-10] MEDS: SEVELAMER CARBONATE 800 MG TABLET PO SCH ×4 (10:52→17:22)
[2022-03-10] MEDS: FERROUS SULFATE 325 MG TABLET PO SCH ×3 (10:54→22:14)
[2022-03-10] MEDS: POTASSIUM CHLORIDE 20 MEQ TABLET PO SCH ×3 (10:54→22:15)
[2022-03-10] MEDS: FLUCONAZOLE 100 MG TABLET PO SCH ×2 (10:54→13:57)
[2022-03-10] MEDS: ASPIRIN CHEW 81 MG TABLET PO SCH ×2 (10:54→13:57)
[2022-03-10] MEDS: DOCUSATE SODIUM 100 MG CAPSULE PO SCH ×2 (10:54→13:57)
[2022-03-10] MEDS: POLYETHYLENE GLYCOL POWDER 17 GM PACK PO SCH ×2 (10:54→13:58)
[2022-03-10] MEDS: PANTOPRAZOLE 40 MG VIAL IV SCH ×2 (10:55→22:15)
[2022-03-10 13:14] LABS: Arterial Base Excess iSTAT 6 MMOL/L (-2.5-2.5); Arterial Bicarbonate iSTAT 31.2 MMOL/L (20-26); Arterial O2 Saturation iSTAT 93 % (95-100); Arterial PCO2 iSTAT 46 MM HG (35-48); Arterial PO2 iSTAT 65 MM HG (80-95); Arterial Total CO2 iSTAT 33 MMO/L (23-27); Arterial pH iSTAT 7.438 (7.35-7.45)
[2022-03-10] MEDS: MONTELUKAST 10 MG TABLET PO SCH (22:00)
[2022-03-10] MEDS: PARoxetine 20 MG TABLET PO SCH (22:14)
[2022-03-10] MEDS: ATORVASTATIN 80 MG TABLET PO SCH (22:14)
[2022-03-11] MEDS: INSULIN LISPRO 100 UNIT/ML SUBCUT SCH ×4 (02:34→17:04)
[2022-03-11 05:22] LABS: Basophils % 0.2 % (0.0-0.8); Eosinophils # 0.1 10*3/uL (0.0-0.87); Eosinophils % 1.5 % (0.00-10.9); Hematocrit 28.3 VOL% (35.7-47.0); Immature Granulocytes % 0.8 %; Immature Granulocytes Absolute 0.05 #; Lymphocytes # 2.2 10*3/uL (1.4-4.0); Lymphocytes % 33.8 % (21.3-54.2); Mean Corpuscular HGB Conc 31.8 GM/DL (32-36); Mean Corpuscular Volume 93.4 FL (87-102); Monocytes # 0.5 10*3/uL (0.11-0.8); Neutrophils % 55.7 % (38.7-73.9); Platelet Count 278 T/CUMM (130-400); Red Blood Count 3.03 MC/CUMM (3.8-5.5); Red Cell Distribution Width 14.3 % (9.3-17.3); White Blood Count 6.5 T/CUMM (4-12)
[2022-03-11 05:39] LABS: Calcium 8.1 MG/DL (8.5-10.1); Osmolality,Calculated 279.5 MOS/KG (273-304); Potassium 3.7 MMOL/L (3.5-5.1)
[2022-03-11 05:45] LABS: Platelet Estimate Adequate
[2022-03-11] MEDS: SODIUM CHLORIDE 0.9% 500 ML IV SCH ×2 (07:28→12:40)
[2022-03-11] MEDS: carvediloL 6.25 MG TABLET PO SCH (09:43)
[2022-03-11] MEDS: SEVELAMER CARBONATE 800 MG TABLET PO SCH ×3 (09:44→17:05)
[2022-03-11] MEDS: POLYETHYLENE GLYCOL POWDER 17 GM PACK PO SCH (09:44)
[2022-03-11] MEDS: ASPIRIN CHEW 81 MG TABLET PO SCH (09:44)
[2022-03-11] MEDS: POTASSIUM CHLORIDE 20 MEQ TABLET PO SCH (09:44)
[2022-03-11] MEDS: DOCUSATE SODIUM 100 MG CAPSULE PO SCH (09:44)
[2022-03-11] MEDS: FERROUS SULFATE 325 MG TABLET PO SCH (09:44)
[2022-03-11] MEDS: FLUCONAZOLE 100 MG TABLET PO SCH (09:44)
[2022-03-11] MEDS: INSULIN NPH/REGULAR 70/30 100 UNIT/ML SUBCUT SCH ×2 (09:52→17:04)
[2022-03-11] MEDS: PANTOPRAZOLE 40 MG VIAL IV SCH (09:53)
[2022-03-11 16:19] VITALS: BP 120/73
== END 2022-03-11 18:16 | disposition home health service (06) | DRG 368 ==
LOC: EDBD → EDUNIT# → N.TELEN 12:11 → N.ED 12:11 → SUATTDRO 15:58 → N.TELEN 17:15 → SUATTDRO 03-07 09:41
PROVIDERS: ADMIT Internal Medicine; ATTEND Hospitalist

== ENCOUNTER 2022-04-08 10:45 | Inpatient (IN) ==
[2022-04-08] MEDS ORDERED: ONDANSETRON 4 MG/2 ML VIAL IV STA ×3 (11:14→12:36)
[2022-04-08 11:50] LABS: Calcium 8.7 MG/DL (8.5-10.1); Osmolality,Calculated 286.3 MOS/KG (273-304); Potassium 3.1 MMOL/L (3.5-5.1)
[2022-04-08 12:53] LABS: Basophils % 0.2 % (0.0-0.8); Eosinophils # 0.2 10*3/uL (0.0-0.87); Eosinophils % 1.2 % (0.00-10.9); Hematocrit 32.7 VOL% (35.7-47.0); Immature Granulocytes % 0.6 %; Immature Granulocytes Absolute 0.07 #; Mean Corpuscular HGB Conc 33.6 GM/DL (32-36); Mean Corpuscular Volume 85.8 FL (87-102); Mean Platelet Volume 10.9 FL (9.6-12.0); Monocytes # 0.8 10*3/uL (0.11-0.8); Monocytes % 6.2 % (1.7-12.7); Neutrophils % 67.8 % (38.7-73.9); Platelet Count 385 T/CUMM (130-400); Red Blood Count 3.81 MC/CUMM (3.8-5.5); Red Cell Distribution Width 13.3 % (9.3-17.3); White Blood Count 12.7 T/CUMM (4-12)
[2022-04-08] MEDS ORDERED: PROMETHAZINE 25 MG/1 ML VIAL ONE (15:22)
[2022-04-08] MEDS ORDERED: PROMETHAZINE 25 MG/1 ML VIAL IM STA (15:27)
[2022-04-08] MEDS ORDERED: POTASSIUM CHLORIDE 20 MEQ TABLET PO ONE (16:58)
[2022-04-08] MEDS ORDERED: GLUCAGON 1 MG VIAL IM PRN (16:59)
[2022-04-08] MEDS ORDERED: ACETAMINOPHEN 325 MG TABLET PO PRN (16:59)
[2022-04-08] MEDS ORDERED: HEPARIN 5,000 UNIT/1 ML VIAL SUBCUT SCH (17:00)
[2022-04-08] MEDS ORDERED: DEXTROSE 10% 250 ML BAG IV PRN (17:05)
[2022-04-08 17:26] LABS: Thyroid Stimulating Hormone 2.5 uIU/ml (0.358-3.74)
[2022-04-08] MEDS: ONDANSETRON 4 MG/2 ML VIAL IV PRN (18:50)
[2022-04-08] MEDS: INSULIN LISPRO 100 UNIT/ML SUBCUT SCH (20:53)
[2022-04-08] MEDS: PROMETHAZINE 25 MG/1 ML VIAL IM PRN (20:54)
[2022-04-08] MEDS: ASPIRIN EC 81 MG TABLET PO SCH (23:34)
[2022-04-08] MEDS: DICYCLOMINE 10 MG CAPSULE PO SCH (23:34)
[2022-04-08] MEDS: SUCRALFATE 1 GM TABLET PO SCH (23:35)
[2022-04-08] MEDS: ATORVASTATIN 80 MG TABLET PO SCH (23:35)
[2022-04-08] MEDS: PARoxetine 20 MG TABLET PO SCH (23:35)
[2022-04-08] MEDS: PANTOPRAZOLE 40 MG TABLET PO SCH (23:35)
[2022-04-08] MEDS: FERROUS SULFATE 325 MG TABLET PO SCH (23:35)
[2022-04-08] MEDS: MONTELUKAST 10 MG TABLET PO SCH (23:36)
[2022-04-09 05:47] LABS: Basophils % 0.1 % (0.0-0.8); Hematocrit 29.3 VOL% (35.7-47.0); Hemoglobin 9.9 GM/DL (12.0-16.0); Immature Granulocytes % 0.9 %; Immature Granulocytes Absolute 0.15 #; Lymphocytes # 1.8 10*3/uL (1.4-4.0); Lymphocytes % 11.1 % (21.3-54.2); Mean Corpuscular HGB Conc 33.8 GM/DL (32-36); Mean Corpuscular Volume 86.9 FL (87-102); Mean Platelet Volume 11.5 FL (9.6-12.0); Monocytes # 0.9 10*3/uL (0.11-0.8); Monocytes % 5.6 % (1.7-12.7); Neutrophils % 82.3 % (38.7-73.9); Platelet Count 368 T/CUMM (130-400); Red Blood Count 3.37 MC/CUMM (3.8-5.5); Red Cell Distribution Width 13.3 % (9.3-17.3); White Blood Count 16.2 T/CUMM (4-12)
[2022-04-09 06:11] LABS: Osmolality,Calculated 294.8 MOS/KG (273-304)
[2022-04-09 06:30] LABS: Potassium 2.3 MMOL/L (3.5-5.1)
[2022-04-09] MEDS: ONDANSETRON 4 MG/2 ML VIAL IV PRN (06:51)
[2022-04-09] MEDS ORDERED: POTASSIUM CHLORIDE 20 MEQ TABLET PO ONE (07:52)
[2022-04-09] MEDS ORDERED: PANTOPRAZOLE 40 MG TABLET PO SCH (09:00)
[2022-04-09] MEDS: PANTOPRAZOLE 40 MG TABLET PO SCH (09:41)
[2022-04-09] MEDS: SEVELAMER CARBONATE 800 MG TABLET PO SCH ×3 (09:41→18:54)
[2022-04-09] MEDS: DICYCLOMINE 10 MG CAPSULE PO SCH ×3 (09:41→22:32)
[2022-04-09] MEDS: FERROUS SULFATE 325 MG TABLET PO SCH (09:41)
[2022-04-09] MEDS: SUCRALFATE 1 GM TABLET PO SCH ×2 (09:41→13:54)
[2022-04-09] MEDS: PROMETHAZINE 25 MG/1 ML VIAL IM PRN (09:42)
[2022-04-09] MEDS: INSULIN LISPRO 100 UNIT/ML SUBCUT SCH ×4 (09:42→22:32)
[2022-04-09] MEDS ORDERED: MAGNESIUM SULF INJ 3 GM in SODIUM CHLORIDE 0.9% 100 ML IV ONE (10:20)
[2022-04-09] MEDS ORDERED: PROMETHAZINE 25 MG SUPP RECTAL PRN (10:23)
[2022-04-09] MEDS: SODIUM CHLORIDE 0.9% 500 ML IV SCH (12:50)
[2022-04-09] MEDS: PANTOPRAZOLE 40 MG VIAL IV SCH (17:15)
[2022-04-09] MEDS ORDERED: PROMETHAZINE 12.5 MG SUPP RECTAL PRN (17:30)
[2022-04-09] MEDS: PIPERACILLIN/TAZOBACTAM 3,375 MG in SODIUM CHLORIDE 0.9% 100 ML IV SCH (18:54)
[2022-04-09] MEDS: ASPIRIN EC 81 MG TABLET PO SCH (22:32)
[2022-04-10 02:34] LABS: Basophils # 0.1 10*3/uL (0.0-0.2); Basophils % 0.2 % (0.0-0.8); Eosinophils % 0.1 % (0.00-10.9); Hematocrit 33.7 VOL% (35.7-47.0); Hemoglobin 10.6 GM/DL (12.0-16.0); Immature Granulocytes % 0.8 %; Lymphocytes # 2.6 10*3/uL (1.4-4.0); Lymphocytes % 10.6 % (21.3-54.2); Mean Corpuscular HGB Conc 31.5 GM/DL (32-36); Mean Corpuscular Volume 91.6 FL (87-102); Mean Platelet Volume 11.2 FL (9.6-12.0); Monocytes # 1.3 10*3/uL (0.11-0.8); Monocytes % 5.4 % (1.7-12.7); Neutrophils % 82.9 % (38.7-73.9); Platelet Count 404 T/CUMM (130-400); Red Blood Count 3.68 MC/CUMM (3.8-5.5); Red Cell Distribution Width 13.9 % (9.3-17.3); White Blood Count 24.2 T/CUMM (4-12)
[2022-04-10 02:59] LABS: Calcium 9.3 MG/DL (8.5-10.1); Potassium 2.8 MMOL/L (3.5-5.1)
[2022-04-10 03:16] LABS: Anisocytosis 1+; Band Neutrophils 7 % (0-10); Lymphocytes 11 % (20-55); Macrocytosis Slight; Platelet Estimate Normal; Total Cells Counted 100
[2022-04-10] MEDS: ONDANSETRON 4 MG/2 ML VIAL IV PRN ×2 (05:46→09:05)
[2022-04-10] MEDS: SODIUM CHLORIDE 0.9% 500 ML IV SCH (05:48)
[2022-04-10] MEDS: INSULIN LISPRO 100 UNIT/ML SUBCUT SCH ×5 (10:39→22:17)
[2022-04-10] MEDS: SEVELAMER CARBONATE 800 MG TABLET PO SCH ×3 (10:39→16:52)
[2022-04-10] MEDS: DICYCLOMINE 10 MG CAPSULE PO SCH ×3 (10:40→23:13)
[2022-04-10] MEDS: POTASSIUM CHLORIDE RIDER 10 MEQ/100 ML PREMIX IV PRN ×4 (11:32→18:26)
[2022-04-10] MEDS ORDERED: PROMETHAZINE 25 MG/1 ML VIAL IM PRN (11:51)
[2022-04-10] MEDS: PANTOPRAZOLE 40 MG VIAL IV SCH ×2 (13:22→22:17)
[2022-04-10] MEDS ORDERED: PROMETHAZINE INJ 12.5 MG in SODIUM CHLORIDE 0.9% 50 ML IV ONE (15:32)
[2022-04-10] MEDS: SUCRALFATE 1 GM TABLET PO SCH ×2 (15:35→23:13)
[2022-04-10] MEDS: PIPERACILLIN/TAZOBACTAM 3,375 MG in SODIUM CHLORIDE 0.9% 100 ML IV SCH (16:56)
[2022-04-10] MEDS ORDERED: VANCOMYCIN INJ 1,000 MG in SODIUM CHLORIDE 0.9% 250 ML IV ONE (17:00)
[2022-04-10] MEDS: HEPARIN 5,000 UNIT/1 ML VIAL SUBCUT SCH (22:16)
[2022-04-10] MEDS: PARoxetine 20 MG TABLET PO SCH (23:13)
[2022-04-10] MEDS: ATORVASTATIN 80 MG TABLET PO SCH (23:13)
[2022-04-10] MEDS: ASPIRIN EC 81 MG TABLET PO SCH (23:13)
[2022-04-10] MEDS: MONTELUKAST 10 MG TABLET PO SCH (23:13)
[2022-04-11] MEDS: PIPERACILLIN/TAZOBACTAM 3,375 MG in SODIUM CHLORIDE 0.9% 100 ML IV SCH ×2 (03:33→15:40)
[2022-04-11] MEDS: SODIUM CHLORIDE 0.9% 500 ML IV SCH ×2 (03:35→17:38)
[2022-04-11] MEDS: SUCRALFATE 1 GM TABLET PO SCH ×4 (10:11→21:30)
[2022-04-11] MEDS: DICYCLOMINE 10 MG CAPSULE PO SCH ×3 (10:11→21:29)
[2022-04-11] MEDS: SEVELAMER CARBONATE 800 MG TABLET PO SCH ×3 (10:11→17:38)
[2022-04-11] MEDS: INSULIN LISPRO 100 UNIT/ML SUBCUT SCH ×4 (10:12→21:30)
[2022-04-11] MEDS: HEPARIN 5,000 UNIT/1 ML VIAL SUBCUT SCH ×2 (10:12→21:29)
[2022-04-11] MEDS: PANTOPRAZOLE 40 MG VIAL IV SCH ×2 (10:12→21:29)
[2022-04-11 10:39] LABS: Calcium 8.9 MG/DL (8.5-10.1); Osmolality,Calculated 291.1 MOS/KG (273-304); Potassium 2.9 MMOL/L (3.5-5.1)
[2022-04-11] MEDS ORDERED: POTASSIUM BICARB EFFERVESCENT 20 MEQ TAB.EFF PO ONE (12:00)
[2022-04-11] MEDS: POTASSIUM CHLORIDE RIDER 10 MEQ/100 ML PREMIX IV SCH ×2 (12:30→13:25)
[2022-04-11] MEDS: ATORVASTATIN 80 MG TABLET PO SCH (21:29)
[2022-04-11] MEDS: MONTELUKAST 10 MG TABLET PO SCH (21:29)
[2022-04-11] MEDS: PARoxetine 20 MG TABLET PO SCH (21:30)
[2022-04-11] MEDS: ASPIRIN EC 81 MG TABLET PO SCH (21:30)
[2022-04-12] MEDS: PIPERACILLIN/TAZOBACTAM 3,375 MG in SODIUM CHLORIDE 0.9% 100 ML IV SCH ×2 (04:51→15:58)
[2022-04-12 06:26] LABS: Basophils % 0.4 % (0.0-0.8); Eosinophils # 0.3 10*3/uL (0.0-0.87); Eosinophils % 2.6 % (0.00-10.9); Hematocrit 28.3 VOL% (35.7-47.0); Immature Granulocytes % 0.5 %; Immature Granulocytes Absolute 0.06 #; Lymphocytes # 2.8 10*3/uL (1.4-4.0); Lymphocytes % 24.6 % (21.3-54.2); Mean Corpuscular HGB Conc 31.8 GM/DL (32-36); Mean Corpuscular Volume 89.8 FL (87-102); Mean Platelet Volume 11.2 FL (9.6-12.0); Monocytes # 0.7 10*3/uL (0.11-0.8); Monocytes % 5.9 % (1.7-12.7); Platelet Count 342 T/CUMM (130-400); Red Blood Count 3.15 MC/CUMM (3.8-5.5); White Blood Count 11.3 T/CUMM (4-12)
[2022-04-12 06:41] LABS: Calcium 8.6 MG/DL (8.5-10.1); Osmolality,Calculated 274.8 MOS/KG (273-304); Potassium 3.4 MMOL/L (3.5-5.1)
[2022-04-12] MEDS: DICYCLOMINE 10 MG CAPSULE PO SCH ×3 (09:52→20:57)
[2022-04-12] MEDS: PANTOPRAZOLE 40 MG VIAL IV SCH ×2 (09:53→20:57)
[2022-04-12] MEDS: SUCRALFATE 1 GM TABLET PO SCH ×4 (09:53→20:57)
[2022-04-12] MEDS: HEPARIN 5,000 UNIT/1 ML VIAL SUBCUT SCH ×2 (09:53→20:58)
[2022-04-12] MEDS: SEVELAMER CARBONATE 800 MG TABLET PO SCH ×3 (09:54→17:43)
[2022-04-12] MEDS: INSULIN LISPRO 100 UNIT/ML SUBCUT SCH ×4 (09:54→20:58)
[2022-04-12] MEDS ORDERED: POTASSIUM CHLORIDE 20 MEQ TABLET PO ONE (11:00)
[2022-04-12] MEDS: SODIUM CHLORIDE 0.9% 500 ML IV SCH (12:41)
[2022-04-12] MEDS: ASPIRIN EC 81 MG TABLET PO SCH (20:57)
[2022-04-12] MEDS: PARoxetine 20 MG TABLET PO SCH (20:57)
[2022-04-12] MEDS: MONTELUKAST 10 MG TABLET PO SCH (20:57)
[2022-04-12] MEDS: ATORVASTATIN 80 MG TABLET PO SCH (20:57)
[2022-04-13] MEDS: SODIUM CHLORIDE 0.9% 500 ML IV SCH ×2 (04:49→12:42)
[2022-04-13] MEDS: PIPERACILLIN/TAZOBACTAM 3,375 MG in SODIUM CHLORIDE 0.9% 100 ML IV SCH ×2 (04:49→18:04)
[2022-04-13 05:08] LABS: Calcium 8.6 MG/DL (8.5-10.1); Osmolality,Calculated 283.4 MOS/KG (273-304); Potassium 3.2 MMOL/L (3.5-5.1)
[2022-04-13] MEDS: SUCRALFATE 1 GM TABLET PO SCH ×4 (10:10→22:07)
[2022-04-13] MEDS: HEPARIN 5,000 UNIT/1 ML VIAL SUBCUT SCH ×2 (10:10→22:03)
[2022-04-13] MEDS: DICYCLOMINE 10 MG CAPSULE PO SCH ×3 (10:10→22:07)
[2022-04-13] MEDS: SEVELAMER CARBONATE 800 MG TABLET PO SCH ×3 (10:10→18:03)
[2022-04-13] MEDS: INSULIN LISPRO 100 UNIT/ML SUBCUT SCH ×3 (10:10→15:59)
[2022-04-13] MEDS: PANTOPRAZOLE 40 MG VIAL IV SCH ×2 (10:10→22:06)
[2022-04-13] MEDS: POTASSIUM CHLORIDE RIDER 10 MEQ/100 ML PREMIX IV PRN ×2 (10:11→14:18)
[2022-04-13] MEDS ORDERED: POTASSIUM CHLORIDE 20 MEQ TABLET PO ONE (11:00)
[2022-04-13] MEDS: PARoxetine 20 MG TABLET PO SCH (22:06)
[2022-04-13] MEDS: MONTELUKAST 10 MG TABLET PO SCH (22:07)
[2022-04-13] MEDS: ATORVASTATIN 80 MG TABLET PO SCH (22:07)
[2022-04-13] MEDS: ASPIRIN EC 81 MG TABLET PO SCH (22:08)
[2022-04-14] MEDS: INSULIN LISPRO 100 UNIT/ML SUBCUT SCH ×3 (00:07→12:44)
[2022-04-14] MEDS: SODIUM CHLORIDE 0.9% 500 ML IV SCH ×2 (00:49→12:44)
[2022-04-14] MEDS: PIPERACILLIN/TAZOBACTAM 3,375 MG in SODIUM CHLORIDE 0.9% 100 ML IV SCH (03:57)
[2022-04-14] MEDS: DICYCLOMINE 10 MG CAPSULE PO SCH (09:08)
[2022-04-14] MEDS: SUCRALFATE 1 GM TABLET PO SCH ×2 (09:09→12:44)
[2022-04-14] MEDS: SEVELAMER CARBONATE 800 MG TABLET PO SCH ×2 (09:10→12:44)
[2022-04-14] MEDS: HEPARIN 5,000 UNIT/1 ML VIAL SUBCUT SCH (09:13)
[2022-04-14] MEDS: PANTOPRAZOLE 40 MG VIAL IV SCH (09:14)
[2022-04-14 12:12] VITALS: BP 101/57
== END 2022-04-14 13:56 | disposition home health service (06) | DRG 73 ==
LOC: N.ED 10:45 → N.EDINP 10:45 → SUATTDRO 16:55 → N.5E 17:58 → SUATTDRO 04-09 15:31
PROVIDERS: ADMIT Internal Medicine; ATTEND Internal Medicine Geriatric Medicine